=== PATIENT | male | born 1945 | race Caucasian/White ===

== ENCOUNTER → 2020-05-14 | Outpatient (CLI) | payer MEDICARE ==
[2020-05-14 19:08] LABS: Protein, Total 5.9 g/dL (6.2-8.2)
[2020-05-15 17:36] LABS: Albumin 3.64 g/dL (3.80-4.90); Gamma Globulin 0.34 g/dL (0.70-1.50)
== END | disposition home or self-care (01) ==
LOC: LABWHC1 10:29
PROVIDERS: ATTEND Psychiatry & Neurology Neurology
DX: G62.9 Polyneuropathy, unspecified (principal)
CPT/HCPCS: 36415; 82607; 84165; 84207; 86334

== ENCOUNTER → 2020-10-18 | Outpatient (CLI) | payer MEDICARE ==
--- NOTE | 2020-10-20 09:04 | MR ---
EXAMINATION TYPE: MR Prostate wo/w con DATE OF EXAM: 10/18/2020 COMPARISON: None. INDICATION: Malignant neoplasm of prostate PSA: 6.1 ng/ml on March 25, 2020 Recent Biopsy and Date: September 02, 2020 Pathology Report (If Applicable): Right lateral base adenocarcinoma Rosie grade 3+4 = 7, 25% of tis rio measuring 2 mm length. Right base adenocarcinoma Rosie grade 3+4 = 7 approximately 10% of tissu e measuring 1 mm length, focal perineural invasion. Right lateral mid core biopsy adenocarcinoma Glea son grade 3+4 = 7 30% of tissue measure 2.5 mm length. Right mid core biopsy adenocarcinoma grade 3+4 = 7 5% of tissue measure less than 1 mm in length. Right lateral apex adenocarcinoma grade 3+4 = 7 5 % of tissue measures less than 1 mm length. Right apex high grade neoplasia. TECHNIQUE: Examination was performed using a 3T MRI without an endorectal coil. Multiparametric imaging was perf ormed with T2 mutliplanar sequences, axial diffusion weighted imaging and dynamic contrast enhanced i maging, utilizing 7.5 mL intravenous Gadavist gadolinium contrast. FINDINGS: PROSTATE VOLUME: 5.0 cm SI x 3.8 cm AP x 4.9 cm LR Vol= 48.7 cc PSA DENSITY: 0.125 ng/ml/cc Calculated PSA equals 5.844 T1 weighted images show vague areas of hyperintensity bilaterally consistent with blood product, find ings are greatest in the anterior aspect of the left central apex making evaluation suboptimal. Prost ate gland overall is enlarged in size and markedly heterogeneous in appearance. The peripheral zone s hows marked heterogeneity and areas of diminished signal on ADC mapping. No areas of marked diminishe d signal or increased signal on diffusion-weighted imaging identified. The central transitional zone shows marked heterogeneity with slightly suspicious asymmetric area of diminished T2 signal in the la teral apex measuring 1.4 x 0.9 cm image 17 series 401 without restricted diffusion. Prostatic capsule is poorly defined. Seminal vesicles symmetric and somewhat atrophic. No definitive abnormal adjacent adenopathy identified. Bladder not greatly distended with mild to moderate wall thi ckening and trabeculation greatest anteriorly. There is artifact from metallic hardware right hip lev el noted. No concerning pelvic fluid collection. No suspicious groin hernia or adenopathy identified. IMPRESSION: Markedly heterogeneous enlarged prostate. Poor definition of capsule without definitive suspicious le sonia Highest Assessment Category: 3 for the transitional and peripheral zone MRI Stage: T2 N0 M0 based on review of pelvic images. False negative rates for MRI range from 5-20% depending on risk profile. Assessment Categories: 1 ? Very low (clinically significant cancer is highly unlikely to be present) 2 ? Low (clinically significant cancer is unlikely to be present) 3 ? Intermediate (the presence of clinically significant cancer is equivocal) 4 ? High (clinically significant cancer is likely to be present) 5 ? Very high (clinically significant cancer is highly likely to be present)
== END | disposition home or self-care (01) ==
LOC: RADMRIMAIN 09:03
PROVIDERS: ATTEND Radiology Radiation Oncology
DX: N40.0 Benign prostatic hyperplasia without lower urinary tract symptoms (principal); C61 Malignant neoplasm of prostate
CPT/HCPCS: 72197; A9585

== ENCOUNTER → 2020-10-19 | Outpatient (CLI) | payer MEDICARE | END | disposition home or self-care (01) | LOC: LABWHC1 12:52 | PROVIDERS: ATTEND Radiology Radiation Oncology | DX: C61 Malignant neoplasm of prostate (principal) | CPT/HCPCS: 36415; 84153 ==

== ENCOUNTER 2020-11-12 07:39 | Day surgery (SDC) | payer MEDICARE ==
[2020-11-11 09:08] VITALS: BMI 24.8
--- NOTE | 2020-11-11 21:15 | P.GSHP ---
History of Present Illness H&P Date: 11/05/20 Chief Complaint: Prostate cancer The patient is a 75-year-old white male with a rising PSA level, most recently 7.1. JANICE reveals the prostate to be a nodular. He underwent a prostate ultrasound with biopsies 09/02/2020. The prostate volume was 30 mL. 5 of 6 right-sided biopsies showed [place] 7 (3+4) adenocarcinoma. All 6 left-sided biopsies were negative. The patient has elected to be treated with radiation therapy. He declines androgen deprivation therapy. He now comes for SpaceOAR implant and also implantation of gold fiducial markers. - Constitutional Constitutional: Denies chills, Denies fever - Genitourinary (Male) Genitourinary: Reports urinary frequency Past Medical History Past Medical History: Hyperlipidemia, Sleep Apnea/CPAP/BIPAP Additional Past Medical History / Comment(s): HAS [id number] DISEASE History of Any Multi-Drug Resistant Organisms: None Reported Past Surgical History: Adenoidectomy, Appendectomy, Joint Replacement, Orthopedic Surgery, Tonsillectomy Additional Past Surgical History / Comment(s): RT NAHUM. RT KNEE SCOPE. BILAT ROTATOR CUFF SX. BILAT HAND SX. LT CATARACT SX. COLONOSCOPY. HEMORRHOIDECTOMY Past Anesthesia/Blood Transfusion Reactions: No Reported Reaction Past Alcohol Use History: Occasional Past Drug Use History: None Reported - Past Family History Mother Family Medical History: Cancer Sister(s) Family Medical History: Cancer Additional Family Medical History / Comment(s): skin Father Family Medical History: Cancer Additional Family Medical History / Comment(s): skin Medications and Allergies Home Medications Medication Instructions Recorded Confirmed Type Aspirin 81 mg PO DAILY 04/24/15 11/11/20 History Multivitamin [Men's Multi-Vitamin] 1 each PO DAILY 04/24/15 11/11/20 History Ascorbic Acid [Vitamin C] 1,000 mg PO DAILY 11/11/20 11/11/20 History Ergocalciferol [Vitamin D2 (1250 1,250 mcg PO MO 11/11/20 11/11/20 History Mcg = 44925 Iu)] Latanoprost/Pf [Latanoprost 0.005% 1 drop BOTH EYES HS 11/11/20 11/11/20 History Eye Drop] Pravastatin Sodium [Pravachol] 20 mg PO W/SUPPER 11/11/20 11/11/20 History Querctin 1 tab PO DAILY 11/11/20 11/11/20 History Sun Flower 1 tab PO DAILY 11/11/20 11/11/20 History Zinc 25 mg PO DAILY 11/11/20 11/11/20 History Allergies Allergy/AdvReac Type Severity Reaction Status Date / Time No Known Allergies Allergy Verified 11/11/20 08:56 Surgical - Exam - General well developed, well nourished, no distress - Respiratory normal respiratory effort - Abdomen Abdomen: soft, non tender, no guarding, no rigid, no rebound - Psychiatric oriented to time, oriented to person, oriented to place, speech is normal, memory intact Assessment and Plan (1) Malignant neoplasm of prostate Status: Acute Code(s): C61 - MALIGNANT NEOPLASM OF PROSTATE SNOMED Code(s): 415482084 Plan: The SpaceOar implant has been reviewed in detail with the patient. He understands that the rationale for this is to create separation between the prostate and rectum, thus reducing the risk of radiation proctitis. The material begins to breakdown 12-13 weeks following implant, and is reabsorbed by the body. Risks include anesthesia, bleeding, infection, and perineal discomfort. He understands that if the rectal wall is perforated the procedure will need to be aborted. He is also aware of the rationale for implantation undergo fiducial markers, at the request of Radiation Oncology.
[~2020-11-12 07:39] MED LIST: DEXAMETHASONE SOD PHOSPHATE 4 MG/ML 1 ML VIAL IV ONE; HYDROmorphone 0.5 MG/0.5 ML SYRINGE IVP PRN; LACTATED RINGERS 1,000 ML IV SCH; ONDANSETRON 4 MG/2 ML VIAL IVP ONE
[2020-11-12 08:20] VITALS: RESP 18; TEMP 98
[2020-11-12] MEDS ORDERED: fentaNYL (PF) 50 MCG/ML 2 ML AMP ONE (11:12)
[2020-11-12] MEDS ORDERED: PROPOFOL 10 MG/ML 20 ML VIAL IV ONE (11:12)
[2020-11-12] MEDS ORDERED: MIDAZOLAM 2 MG/2 ML VIAL ONE (11:12)
[2020-11-12] MEDS ORDERED: LIDOCAINE 2% INJ 20 MG/ML SQ ONE ×2 (11:35)
[2020-11-12] MEDS ORDERED: LACTATED RINGERS 1,000 ML IV ONE (11:58)
--- NOTE | 2020-11-12 12:08 | P.OP ---
Date of Procedure: 11/12/20 Preoperative Diagnosis: Adenocarcinoma of the Prostate Postoperative Diagnosis: Same Procedure(s) Performed: Implantation of gold fiducial markers, SpaceOAR mplant Anesthesia: MAC Surgeon: Fortunato Fofana Estimated Blood Loss (ml): 10 IV fluids (ml): 600 Pathology: none sent Condition: stable Disposition: PACU Indications for Procedure: The patient is a 75-year-old white male with a rising PSA level, most recently 7.1. JANICE reveals the prostate to be a nodular. He underwent a prostate ultrasound with biopsies 09/02/2020. The prostate volume was 30 mL. 5 of 6 right-sided biopsies showed [place] 7 (3+4) adenocarcinoma. All 6 left-sided biopsies were negative. The patient has elected to be treated with radiation therapy. He declines androgen deprivation therapy. He now comes for SpaceOAR implant and also implantation of gold fiducial markers. Operative Findings: No complications. Approximately 9 mm distance created between prostate and rectum. Description of Procedure: The patient was taken to the operating room and placed in the dorsolithotomy position, with his legs supported in Jose stirrups. The external genitalia was prepped and draped sterilely. The Bruel and Kjaer transrectal ultrasound probe was placed intrarectally. The prostate was imaged. The probe was then placed within the stabilizing stand. A spinal needle was advanced under ultrasonic guidance to the level of the urogenital diaphragm, and lidocaine was used to infiltrate the tissues as the needle was withdrawn. 3 gold fiducial markers were placed under ultrasonic guidance, one laterally on the right at the mid gland level and the other within the left lateral lobe, one at the base and the other at the apex. Next, the SpaceOAR needle was passed through the midline of the perineum, 1-2 cm anterior to the anal opening. The needle was slowly advanced under ultrasonic guidance until the needle tip was located within the fat plane between the prostate and rectum, at the level of the mid prostate gland. The needle was confirmed to be midline on the axial imaging. A small amount of normal saline was injected for hydrodissection. Next, the SpaceOAR components were mixed and loaded into the Y connector per protocol. The Y connector was then connected to the needle, and the components were injected slowly over a course of approximately 12 seconds. A total of 10 ml was injected. Significant distance was created between the prostate and rectum, as desired. It should be noted that at no point was there any concern of rectal perforation. The needle was withdrawn, as well as the transrectal ultrasound probe, and the procedure was terminated. The patient tolerated the procedure well and was taken to the recovery room in stable condition.
[2020-11-12 12:28] VITALS: BP 122/79; PULSE 80
== END 2020-11-12 12:35 | disposition home or self-care (01) ==
LOC: OR 07:39
PROVIDERS: ATTEND Urology
DX: C61 Malignant neoplasm of prostate (principal); E78.5 Hyperlipidemia, unspecified; G47.30 Sleep apnea, unspecified; Z99.89 Dependence on other enabling machines and devices; G60.0 Hereditary motor and sensory neuropathy; Z98.890 Other specified postprocedural states; Z96.641 Presence of right artificial hip joint; Z90.89 Acquired absence of other organs; Z98.42 Cataract extraction status, left eye; Z80.8 Family history of malignant neoplasm of other organs or systems; Z79.82 Long term (current) use of aspirin; Z79.899 Other long term (current) drug therapy
CPT/HCPCS: 55876; 55874; J2001; J2250; J1100; J0690; J2405; J3010; J2704

== ENCOUNTER → 2021-02-09 | Outpatient (CLI) | payer MEDICARE | END | disposition home or self-care (01) | LOC: LABWHC1 10:11 | PROVIDERS: ATTEND Radiology Radiation Oncology | DX: C61 Malignant neoplasm of prostate (principal); Z00.6 Encounter for examination for normal comparison and control in clinical research program | CPT/HCPCS: 36415; 84153 ==

== ENCOUNTER → 2021-02-17 | Outpatient (CLI) | payer MEDICARE ==
[2021-02-17 14:51] LABS: Protein, Total 6.2 g/dL (6.2-8.2)
[2021-02-17 18:34] LABS: Hemoglobin A1C 5.7 % (4.0-6.0)
[2021-02-19 12:24] LABS: Albumin 3.59 g/dL (3.80-4.90); Gamma Globulin 0.45 g/dL (0.70-1.50)
== END | disposition home or self-care (01) ==
LOC: LABWHC1 09:50
PROVIDERS: ATTEND Psychiatry & Neurology Neurology
DX: Z09 Encounter for follow-up examination after completed treatment for conditions other than malignant neoplasm (principal); R73.9 Hyperglycemia, unspecified; G62.9 Polyneuropathy, unspecified
CPT/HCPCS: 36415; 83036; 84165; 86334

== ENCOUNTER → 2021-03-05 | Outpatient (CLI) | payer MEDICARE ==
--- NOTE | 2021-03-05 13:43 | MR ---
EXAMINATION TYPE: MR lumbar spine wo con DATE OF EXAM: 03/05/2021 COMPARISON: None HISTORY: M48.06, I 70.213, R 26.89 . TECHNIQUE: Multiplanar, multisequence images of the lumbar spine were acquired. L1-L2: Posterior circumferential extension endplate disc complex causes anterior mass effect on the t hecal sac. Circumferential extension endplate disc complex results in foraminal encroachment bilatera lly. L2-L3: There is hypertrophic changes of the facets causing posterior lateral mass effect on the theca l sac, encroachment on the lateral recesses, there is crowding of the nerve roots, trefoil appearance of the thecal sac. Circumferential extension of endplate disc complex results in foraminal encroachm ent greater on the right than on the left. There is posterior extension endplate disc complex causing anterior mass effect on the thecal sac. Small central posterior disc protrusion noted. L3-L4: Hypertrophic changes of the facets, ligamentum flavum causes posterior lateral mass effect on the thecal sac, there is a trefoil appearance of the thecal sac. Circumferential extension endplate d isc complex results in foraminal encroachment, posterior extension endplate disc complex causes anter ior mass effect on the thecal sac with some mild to moderate central stenosis. L4-L5: Hypertrophic changes of the facets causes posterior lateral mass effect on the thecal sac, angelique foil appearance of the thecal sac, encroachment on the lateral recess noted on the left due to the hy pertrophic changes. There is minimal anterolisthesis grade 1 L4-5. Circumferential extension of endpl ate disc complex causes some left-sided foraminal encroachment. L5-S1: There is some facet arthropathy change. No significant spinal stenosis or foraminal encroachme nt. No disc herniation. Lumbar segments are intact. No paraspinal masses are identified. Conus medullaris has a normal appe arance. There is a scoliotic curvature to the lumbar spine. Lumbar vertebral bodies show preserved he ight. There is multilevel spondylosis with endplate discogenic marrow signal changes, loss of disc he ight and signal is present at intervertebral levels. Multiple cysts are associated with the kidneys. IMPRESSION: Degenerative disc disease, facet arthropathy, foraminal encroachment, spinal stenosis, spinal curvatu re.
== END | disposition home or self-care (01) ==
LOC: RADMRIMAIN 12:30
PROVIDERS: ATTEND Psychiatry & Neurology Neurology
DX: M48.061 Spinal stenosis, lumbar region without neurogenic claudication (principal); M51.36 Other intervertebral disc degeneration, lumbar region; M47.816 Spondylosis without myelopathy or radiculopathy, lumbar region; M99.73 Connective tissue and disc stenosis of intervertebral foramina of lumbar region; M43.8X6 Other specified deforming dorsopathies, lumbar region
CPT/HCPCS: 72148

== ENCOUNTER → 2021-05-31 | Outpatient (CLI) | payer MEDICARE | END | disposition home or self-care (01) | LOC: LABWHC1 09:05 | PROVIDERS: ATTEND Radiology Radiation Oncology | DX: Z00.6 Encounter for examination for normal comparison and control in clinical research program (principal); C61 Malignant neoplasm of prostate | CPT/HCPCS: 36415; 84153 ==

== ENCOUNTER → 2022-05-30 | Outpatient (CLI) | payer MEDICARE | END | disposition home or self-care (01) | LOC: LABWHC1 09:15 | PROVIDERS: ATTEND Radiology Radiation Oncology | DX: Z00.6 Encounter for examination for normal comparison and control in clinical research program (principal); C61 Malignant neoplasm of prostate; R35.1 Nocturia; Z92.3 Personal history of irradiation | CPT/HCPCS: 36415; 84153 ==

== ENCOUNTER → 2022-06-07 | Outpatient (CLI) | payer MEDICARE ==
[2022-06-07 10:59] LABS: INR 0.9 (<1.2); Prothrombin Time 9.9 sec (9.0-12.0)
[2022-06-07 14:38] LABS: HCT 45.5 % (39.6-50.0); HGB 14.7 g/dL (13.0-17.0); MCH 29.9 pg (27.0-32.0); MCHC 32.3 g/dL (32.0-37.0); MCV 92.5 fL (80.0-97.0); Mean Platelet Volume 9.8 fL (9.5-12.2); NRBC Per 100 WBC 0 /100 WBCS (0.0-0.0); Platelet Count 231 X 10*3/uL (140-440); RBC 4.92 X 10*6/uL (4.40-5.60); RDW 13.2 % (11.5-14.5)
[2022-06-07 14:54] LABS: African American GFR (CKD) 91.2 (60.0-200.0); Albumin/Globulin Ratio 1.61 (1.60-3.17); Anion Gap 9.1 mmol/L (10.00-18.00); BUN/Creat Ratio 21.14 Ratio (12.00-20.00); Blood Urea Nitrogen 19.7 mg/dL (9.0-27.0); Calcium 9.5 mg/dL (8.7-10.3); Carbon Dioxide 25.1 mmol/L (20.0-27.5); Globulin 2.5 g/dL (1.6-3.3); Non-African American GFR(CKD) 78.7 (60.0-200.0); Potassium 4.4 mmol/L (3.5-5.5); Total Bilirubin 0.3 mg/dL (0.30-1.20); Total Protein 6.4 g/dL (6.2-8.2)
[2022-06-07 15:52] LABS: Appearance,Urine Clear (Clear); Bilirubin,Urine Negative (Negative); Blood,Urine Small (Negative); Color,Urine Yellow (Yellow); Ketones,Urine Negative (Negative); Nitrite,Urine Negative (Negative); Specific Gravity,Urine 1.022 (1.001-1.030); Urobilinogen,Urine 0.2 (0.2,1.0)
[2022-06-07 16:36] LABS: Bacteria,Urine None Seen /HPF (None Seen); Calcium Oxalate Crystals,Urine Present /LPF (None Seen)
== END | disposition home or self-care (01) ==
LOC: LABPAT 10:03
PROVIDERS: ATTEND Orthopaedic Surgery
DX: Z01.812 Encounter for preprocedural laboratory examination (principal); M16.12 Unilateral primary osteoarthritis, left hip
CPT/HCPCS: 80053; 81001; 85027; 85610; 85730; 87070; 93005

== ENCOUNTER 2022-06-17 08:20 | Day surgery (SDC) | payer MEDICARE ==
[2022-06-15 09:59] VITALS: BMI 24.7
[~2022-06-17 08:20] MED LIST changes: +ACETAMINOPHEN TAB 500 MG TAB PO PRN; +DEXAMETHASONE SOD PHOSPHATE 10 MG/ML 1 ML VIAL IV PRN; +DOCUSATE 100 MG CAP PO PRN; +FAMOTIDINE 20 MG/2 ML VIAL IVP PRN; +KETOROLAC 15 MG/ML 1 ML VIAL IVP PRN; -LACTATED RINGERS 1,000 ML IV SCH; +ONDANSETRON 4 MG/2 ML VIAL IVP PRN; +TRANEXAMIC ACID IN NACL,ISO-OS 1,000 MG in SALINE 1 100ML.BAG IVPB PRN; +oxyCODONE ER 10 MG TAB.ER.12H PO PRN
[2022-06-17] MEDS: LACTATED RINGERS 1,000 ML IV SCH (09:13)
[2022-06-17] MEDS ORDERED: MIDAZOLAM 2 MG/2 ML VIAL IVP ONE (09:52)
[2022-06-17] MEDS ORDERED: fentaNYL (PF) 50 MCG/ML 2 ML AMP IVP ONE (09:52)
[2022-06-17] MEDS ORDERED: PROPOFOL 10 MG/ML 20 ML VIAL IV ONE (10:02)
[2022-06-17] MEDS ORDERED: HYDROmorphone (PF) 1 MG/ML ONE (10:02)
[2022-06-17] MEDS ORDERED: SUCCINYLCHOLINE CHLORIDE 200 MG/10 ML VIAL IV ONE (10:02)
[2022-06-17] MEDS ORDERED: TRANEXAMIC ACID IN NACL,ISO-OS 1,000 MG/100 ML BAG ONE (10:02)
[2022-06-17] MEDS ORDERED: GLYCOPYRROLATE 0.2 MG/ML 2 ML VIAL ONE (10:02)
[2022-06-17] MEDS ORDERED: NEOSTIGMINE 1 MG/ML 10 ML VIAL ONE (10:02)
[2022-06-17] MEDS ORDERED: PHENYLEPHRINE-0.9% NACL SYG 1,000 MCG/10 ML SYRINGE ONE (10:02)
[2022-06-17] MEDS ORDERED: fentaNYL (PF) 50 MCG/ML 2 ML AMP ONE (10:02)
[2022-06-17] MEDS ORDERED: MIDAZOLAM 2 MG/2 ML VIAL ONE (10:02)
[2022-06-17] MEDS ORDERED: ROCURONIUM 10 MG/ML (5 ML VIAL) IV ONE (10:02)
[2022-06-17] MEDS ORDERED: LIDOCAINE 2% INJ 20 MG/ML (2 ML VIAL) ONE (10:02)
[2022-06-17] MEDS ORDERED: ROPIVACAINE 5 MG/ML 30 ML VIAL ONE (10:02)
[2022-06-17] MEDS ORDERED: TRANEXAMIC ACID IN NACL,ISO-OS 1,000 MG in SALINE 1 100ML.BAG IVPB PRN (10:05)
[2022-06-17] MEDS: ROPIVACAINE/EPI/CLONIDINE/KET 50 ML SYRINGE MISCELLANE PRN ×2 (10:42→12:12)
[2022-06-17] MEDS ORDERED: ceFAZolin 3,000 MG in SODIUM CHLORIDE 0.9% IRRIGATIO 3,000 ML IRRIGATION ONE (10:43)
--- NOTE | 2022-06-17 11:01 | P.ANPRN ---
Procedure Note - Anesthesia - Nerve Block Performed Left Erector Spinae Single Time Out Performed: Yes ([id number]) Date of Procedure: 06/17/22 Procedure Start Time: 09:52 Procedure Stop Time: :56 Location of Patient: PreOp Indication: Acute Post-Operative Pain, Requested by Surgeon Specifically requested for management of pain by DrMala: Brandon Jiménez Sedation Type: Sedate with meaningful contact maintained Preparation: Sterile Prep Position: Supine Catheter: None Needle Types: Pajunk Needle Gauge: 21 Ultrasound used to visualize needle placement: Yes Ultrasound used to observe medication spread: Yes Injectate: 0.5% Ropivacaine (see comment for volume) (30cc) Blood Aspirated: No Pain Paresthesia on Injection Noted: No Resistance on Injection: Normal Image Stored and Saved: Yes Events: Uneventful and Well Tolerated
[2022-06-17] MEDS ORDERED: LACTATED RINGERS 1,000 ML IV ONE (11:39)
[2022-06-17] MEDS ORDERED: NALOXONE 0.4 MG/ML 1 ML VIAL IV PRN (12:36)
[2022-06-17] MEDS ORDERED: hydrOXYzine pamoate 25 MG CAP PO PRN (12:36)
[2022-06-17] MEDS ORDERED: ONDANSETRON 4 MG/2 ML VIAL IVP PRN (12:36)
[2022-06-17] MEDS ORDERED: HYDROcodone/APAP 5-325MG 1 EACH TAB PO PRN (12:36)
[2022-06-17] MEDS ORDERED: HYDROmorphone 0.5 MG/0.5 ML SYRINGE IVP PRN ×3 (12:36)
--- NOTE | 2022-06-17 12:37 | P.OP ---
Date of Procedure: 06/17/22 Preoperative Diagnosis: 1. Severe left hip osteoarthritis 2. Vzorvyl-Czsam-Fqexz disease 3. COPD 4. History of prostate cancer Postoperative Diagnosis: Same Procedure(s) Performed: Left direct anterior total hip arthroplasty Implants: 1. Nezperce Trident II Acetabular Cup, Size #54 2. Aura InsigniaSize # 4 Femoral Stem, High Offset 3. Biolox delta femoral head, 36, -5 neck Anesthesia: GETA Surgeon: Brandon Jiménez Motor Expert #1: Gerry Kincaid Estimated Blood Loss (ml): 300 IV fluids (ml): 1,000 Pathology: other (Femoral head and reamings sent to pathology) Condition: stable Disposition: PACU Indications for Procedure: I had a long discussion with the patient in the office on the potential risks and complications of an elective total hip replacement through a direct anterior approach. Risks discussed include, but are certainly not limited to, risks from anesthesia, superficial infection requiring local wound care or antibiotics, deep kalpesh-prosthetic joint infection and the treatment required to eradicate infection, intraoperative fracture, postoperative periprosthetic fracture, damage to local blood vessels or nerves particularly the lateral femoral cutaneous nerve, delayed wound healing requiring local wound care or possibly surgical debridement, hip dislocation, leg length discrepancy, soft tissue irritation around the total hip implant such as iliopsoas tendinitis or trochanteric bursitis, wear and osteolysis from the implants, squeaking or audible noises, groin pain, thigh pain, heterotopic ossification, stiffness, aseptic loosening of the implants, dissatisfaction with surgical outcome, need for revision surgery, DVT, PE, swelling of the operative extremity, acute coronary event, stroke, failure to thrive, and possibly loss of life or limb. The patient understands that while these are the most common complications after an elective hip replacement there are certainly other less common complications possible. They were given ample time to ask questions regarding the potential complications of a hip replacement. Following our discussion the patient provided their verbal and written consent to go forward with an elective total hip replacement. Operative Findings: The patient had multiple contractures around his hip making surgical exposure difficult. His bone was found to be excellent so I elected to use cementless fixation on the femoral component rather than a cemented stem. Due to his history of prostate cancer reamings from the femur were sent for pathology. Description of Procedure: The patient was identified in the preoperative holding area and the correct hip was marked with my initials. I reviewed the procedure and consent with the patient. All of their questions were answered. The patient was then brought back into the operating room by anesthesia. While on the [facility] heart anesthesia was administered by the anesthesia team. Preoperative antibiotics and tranexamic acid were also given. After the patient was under anesthesia I examined their ankles to determine their preoperative leg length discrepancy. The skin over the anterior aspect of the hip was shaved to remove hair over the site of planned incision. Both feet and ankles were padded with webril and boots for the Sheridan were applied. The patient was then carefully transferred onto the Sheridan table. A perineal post was immediately placed. The arms were placed on arm holders and were well-padded. Both boots were secured to the spars on the Sheridan table. The patient was positioned so that the pelvis was centered over the post. Nonsterile drapes were applied. A timeout was performed identifying the correct patient, operative extremity, and procedure. At this point fluoroscopy was brought in to take preoperative images of the pelvis and operative hip. Using the standing AP pelvis from the office as a template, a comparable image was obtained with fluoroscopy. A metallic bar was used to create a bi-ischial line for use as a reference to leg length adjustments during the procedure. Global offset was also measured on both the operative and nonoperative leg. Fluoroscopy was then brought out and a pre-scrub using a chlorhexidine scrub brush was performed. The operative limb was then prepped and draped in the standard sterile fashion. An anterior longitudinal incision was made lateral and distal to the ASIS. The skin and subcutaneous tissues were incised sharply. The underlying tensor fascia was identified and incised in its midportion. The fascia was dissected free from the underlying muscle and the muscle belly was retracted. A blunt tipped cobra retractor was placed over the superior neck under the muscle fibers of the gluteus minimus. The deep enveloping fascia of the tensor was incised. The anterior leash of vessels were then identified and cauterized. The fascia between the rectus and the capsule was then incised and the pre-capsular fat was excised. A second Cobra was placed inferior to the neck. The interval between the rectus and iliocapsularis and the hip capsule was developed and a retractor was placed carefully over the anterior rim of the acetabulum. A T-shaped anterior capsulotomy was performed. The superior capsular leaflet was left in place in the inferior capsular flap was excised. The Cobra retractors were placed intracapsularly. We then made a femoral neck osteotomy according to preoperative and intraoperative templating and confirmed the level of the osteotomy using fluoroscopic imaging. The femoral head was removed, passed off to the back table, and sized. The superior capsular flap was excised. Retractors were placed circumferentially exposing the acetabulum. We then circumferentially debrided the acetabulum free of labrum and osteophytes. The pulvinar was removed to fully visualize the cotyloid fossa. We then sequentially reamed to achieve peripheral fit and excellent bleeding subchondral bone. The socket was thoroughly irrigated. The acetabular component was impacted into the appropriate position using fluoroscopy to guide version, inclination, and depth of insertion taking care to have a comparable image of th e AP pelvis to the standing image taken in the office. An excellent press-fit was achieved and final position was confirmed using fluoroscopy. The press fit was augmented with bony cancellus dome screws. The liner was then impacted into the socket. Attention was then turned to the femur. The remnant dorsal lateral capsule was excised. The short external rotators were visible and protected. A bone hook was used to confirm appropriate translation of the trochanter away from the acetabulum. The leg was then extended and adducted and the bone hook was used to elevate the femur for broaching. A box osteotome and blunt tipped canal sound was then utilized to gain access to the femoral canal. The patient was found to have excellent bone quality and initially I had difficulty getting even the smallest broach into the canal. I used flexible reamers and sequentially reamed until I could safely begin broaching. Due to his history of prostate cancer reamings were sent for pathology. Due to the patient's good bone quality I elected to use a cementless femoral stem. We then sequentially broached the femur in appropriate anteversion until excellent torsional stability was achieved. The neck cut was brought flush to the trial broach with a calcar planar. A trial neck and head were then placed onto the broach and the hip was atraumatically reduced under direct visualization. External rotation to 90 was performed to assess stability. Fluoroscopy was brought in. An AP and lateral fluoroscopic image of the proximal femur was obtained to assess position and fill of the trial broach. An AP of the pelvis was then obtained and matched to the preoperative image taken. A bi-ischial bar was then placed and measurements were taken to assess changes in length and offset. The hip was then carefully dislocated, the proximal femur was exposed, and the trial implants were removed. The wound and proximal femur was thoroughly irrigated using sterile saline and pulsatile lavage. The final femoral implant was dispensed and gently tapped into place generating an excellent press-fit. The trunnion was cleansed and the final head was tapped into place to engage the Fowler taper. The acetabulum was irrigated and visualized to be free of debris. The hip was carefully reduced. Stability was checked clinically with external rotation to 90 and there was no evidence of instability. Final fluoroscopic images were taken. The wound was then thoroughly irrigated and soaked with a dilute Betadine rinse for 3 minutes. 3 L of sterile saline was irrigated through the wound using pulsatile lavage. Local anesthetic cocktail was injected into the soft tissues around the surgical field. A deep drain was placed. The wound was then closed in layers. A sterile dressing was placed over the surgical incision and drain site. The drapes were taken down and the patient was carefully transferred off of the Sheridan table. Following removal of the boots the leg lengths felt acceptable. The patient was then taken to recovery room having tolerated the procedure well. Gerry Kincaid PA-C was required as a skilled assistant media planner for patient positioning, surgical exposure, retraction, placement of implants, and closure of the surgical wound. PLAN: The patient can weight-bear as tolerated on the operative extremity. 2 doses of postoperative antibiotics. DVT prophylaxis with aspirin 81 mg twice a day based on preoperative risk stratification. Physical therapy for gait training. Discontinue drain postoperative day #1 if output is less than 100 mL per shift.
--- NOTE | 2022-06-17 13:43 | XR ---
EXAMINATION TYPE: XR Hip Limited LT DATE OF EXAM: 06/17/2022 COMPARISON: NONE HISTORY: Postop TECHNIQUE: One view submitted. FINDINGS: There is postsurgical change in near anatomic alignment. There is soft tissue edema and emphysema. IMPRESSION: 1. Postoperative change. Appears in near-anatomic alignment.
--- NOTE | 2022-06-17 13:43 | FL ---
EXAMINATION TYPE: FL guidance operating room DATE OF EXAM: 06/17/2022 HISTORY: Fluoroscopy time 45 seconds of fluoroscopy provided. IMPRESSION: 1. Fluoroscopy time.
[2022-06-17] MEDS ORDERED: PRAVASTATIN SODIUM 20 MG TAB PO SCH (17:30)
[2022-06-17] MEDS ORDERED: LATANOPROST 0.005% OPHTH DROPS 2.5 ML BTL BOTH EYES SCH (18:30)
[2022-06-17] MEDS: HYDROcodone/APAP 5-325MG 1 EACH TAB PO PRN (18:39)
[2022-06-17] MEDS: ASPIRIN 81 MG PO SCH (20:52)
[2022-06-17] MEDS ORDERED: ARTIFICIAL TEARS-HYPROMELLOSE DROPS 15 ML BTL BOTH EYES SCH (21:00)
[2022-06-17] MEDS ORDERED: SENNOSIDES-DOCUSATE SODIUM 1 EACH TAB PO SCH (21:00)
[2022-06-18] MEDS: HYDROcodone/APAP 5-325MG 1 EACH TAB PO PRN ×2 (01:20→09:48)
[2022-06-18] MEDS: LACTATED RINGERS 1,000 ML IV SCH (05:06)
[2022-06-18 08:52] VITALS: BP 136/81; PULSE 124; RESP 20; TEMP 98.4
[2022-06-18] MEDS ORDERED: KETOTIFEN 0.025% OPHTH DROPS 5 ML BTL BOTH EYES SCH (09:00)
[2022-06-18] MEDS ORDERED: ASPIRIN 81 MG PO SCH (09:00)
[2022-06-18] MEDS ORDERED: MULTIVITAMINS, THERA 1 EACH TAB PO SCH (09:00)
--- NOTE | 2022-06-18 09:33 | P.CONS ---
History of Present Illness - Reason for Consult Consult date: 06/18/22 medical Management Requesting physician: Mariana Jiménez - Chief Complaint OA of the left hip - History of Present Illness This is a 77-year-old male patient who presented for an elective left hip arthroplasty with Dr. Jiménez on 06/17/2022. Patient has past medical history of prostate cancer in which she has received radiation, hyperlipidemia, osteoarthritis and sleep apnea. Patient reports he has a long-standing history of bilateral arthritis to hip with previous right hip arthroplasty. Conservative management has failed and patient elected for surgical procedure. Patient is currently postop day 1. Patient has been up ambulating. Patient reports urination without difficulty. Patient denies any chest pain or shortness breath. Patient denies nausea vomiting or diarrhea. Patient denies any urinary burning or frequency Review of Systems Referred to HPI otherwise unremarkable Past Medical History Past Medical History: Cancer, Hyperlipidemia, Osteoarthritis (OA), Prostate Disorder, Sleep Apnea/CPAP/BIPAP Additional Past Medical History / Comment(s): HAS BBXPERT-VBIKE-EPVNM DISEASE, has curled toes (wears braces on feet), prostate cancer-had radiation tx 10/2019- 11/2019 History of Any Multi-Drug Resistant Organisms: None Reported Past Surgical History: Adenoidectomy, Appendectomy, Joint Replacement, Orthopedic Surgery, Tonsillectomy Additional Past Surgical History / Comment(s): hemorrhoidectomy, justino shoulder rotator cuff, rt hip replacement, left cataract, justino hand tendon surgery, gum surgery, arthroscopy rt knee, rt hip revision, Past Anesthesia/Blood Transfusion Reactions: No Reported Reaction Past Psychological History: No Psychological Hx Reported Smoking Status: Never smoker Past Alcohol Use History: Occasional Past Drug Use History: None Reported - Past Family History Sister(s) Family Medical History: Cancer Additional Family Medical History / Comment(s): skin Father Family Medical History: Cancer Additional Family Medical History / Comment(s): skin Mother Family Medical History: Cancer Medications and Allergies Home Medications Medication Instructions Recorded Confirmed Type Aspirin 81 mg PO DAILY 04/24/15 06/17/22 History Multivitamin [Men's Multi-Vitamin] 1 each PO DAILY 04/24/15 06/17/22 History Latanoprost/Pf [Latanoprost 0.005% 1 drop BOTH EYES PC-SUPPER 11/11/20 06/17/22 History Eye Drop] Pravastatin Sodium [Pravachol] 20 mg PO W/SUPPER 11/11/20 06/17/22 History Carboxymethylcellulose Sodium 1 drop BOTH EYES HS 06/15/22 06/17/22 History [Refresh Tears] Ergocalciferol [Vitamin D2 (1250 1,250 mcg PO MO 06/15/22 06/17/22 History Mcg = 86145 Iu)] Olopatadine HCl [Pataday] 1 drop BOTH EYES QAM 06/15/22 06/17/22 History Aspirin 81 mg PO BID 30 Days #60 tab 06/18/22 Rx Diclofenac Sodium [Voltaren] 75 mg PO BID 30 Days #60 tab 06/18/22 Rx Docusate [Colace] 100 mg PO BID #60 capsule 06/18/22 Rx HYDROcodone/APAP 5-325MG [Riddle 1 tab PO Q6HR PRN 7 Days #30 tab 06/18/22 Rx 5-325] Omeprazole 40 mg PO DAILY 30 Days #30 cap 06/18/22 Rx Allergies Allergy/AdvReac Type Severity Reaction Status Date / Time No Known Allergies Allergy Verified 06/17/22 08:46 Physical Exam Vitals: Vital Signs Temp Pulse Pulse Resp BP BP Pulse Ox 06/18/22 08:00 98.4 F 124 H 20 136/81 97 06/18/22 01:43 98.3 F 89 14 120/70 95 06/17/22 20:00 97.6 F 85 89 18 110/74 96 06/17/22 18:00 87 114/75 97 06/17/22 16:00 93 132/75 98 06/17/22 15:30 92 131/83 96 06/17/22 15:15 66 125/74 99 06/17/22 15:00 87 129/83 98 06/17/22 14:45 60 119/72 95 06/17/22 14:30 59 L 122/71 100 06/17/22 14:02 85 16 115/61 99 06/17/22 13:49 61 16 116/58 94 L 06/17/22 13:34 87 16 124/58 99 06/17/22 13:19 58 L 16 118/68 98 06/17/22 13:04 64 16 130/64 98 06/17/22 12:47 67 16 122/67 97 09/16/22 12:36 97.4 F L 63 16 118/70 99 Intake and Output 06/17/22 06/18/22 06/18/22 22:59 06:59 14:59 Intake Total 540 Output Total 100 Balance 540 -100 Intake: Oral 540 Output: Urine 100 Other: Voiding Method Urinal # Voids 4 Weight 79.5 kg Head normocephalic Neck supple Lungs clear to auscultation bilaterally no wheezing or crackles Heart regular rate and rhythm S1-S2, no rub or gallop Abdomen is soft nontender nondistended positive bowel sounds no hepatosplenomegaly Extremities no edema. Left hip dressing clean dry and intact Neuro alert and orientated to 3 Assessment and Plan Assessment: 1. Left hip arthritis status post surgical repair on 06/17/[address] Jiménez 2. History of prostate cancer 3. History of hyperlipidemia 4. Previous history of right hip arthroplasty Thank you for this consultation we'll continue to follow patient closely throughout stay Anticipate possible discharge home today Laboratory currently pending Time with Patient: Greater than 30 (Greater than 60% of the total time spent in counseling and coordination of care)
[2022-06-18] MEDS: ASPIRIN 81 MG PO SCH (09:39)
--- NOTE | 2022-06-18 10:00 | P.DS ---
Providers Expected date of discharge: 06/18/22 Attending physician: Brandon Jimnéez Consults: 06/17/22 12:36 Consult Physician Routine Consulting Provider: Lucinda Hyman Consult Reason/Comments: medical management Do you want consulting provider notified?: Yes Primary care physician: Lucinda Boogie [place] [facility] Course: This is a 77-year-old male who was last seen in the office by Dr. Jiménez with complaints of continued left hip pain. The patient has a known history of degenerative arthritis of the left hip and presents to discuss surgical options. After discussion and consideration the patient elects to proceed with direct anterior left total hip arthroplasty. The patient is seen preoperatively by Dr. Hyman and cleared for surgery. The patient is admitted to [facility] for direct anterior left total hip arthroplasty. The procedures performed without complication or sequelae. Patient is doing well postoperatively. Vital signs are stable at discharge. Labs are stable at discharge. The patient is examined bedside this morning with Dr. Jiménez. He states the pain in her left hip is well-controlled at this time. He is ambulating with a walker with minimal assistance. He has passed physical therapy to return home today. He overall feels well. He denies chest pain, shortness of breath, nausea, vomiting, fevers, chills. On examination, the patient is lying in bed in no apparent distress. He is alert and oriented 3. On inspection of her left hip, there is surgical OpSite dressing in place with no bleeding or drainage through the dressing. Mild swell ing of the thigh, thigh soft and compressible. Motor and sensory function is intact of the left lower extremity. Femoral nerve function intact. Left lower extremity were well perfused. The calf is soft and nontender. The patient is discharged to home with home health care on postop day #1 pending medical clearance. Please see orders and refer to the med rec for accurate list of medications. Plan - Discharge Summary Discharge Rx Participant: Yes New Discharge Prescriptions: New HYDROcodone/APAP 5-325MG [Patterson 5-325] 1 tab PO Q6HR PRN 7 Days #30 tab PRN Reason: Pain Diclofenac Sodium [Voltaren] 75 mg PO BID 30 Days #60 tab Aspirin 81 mg PO BID 30 Days #60 tab Docusate [Colace] 100 mg PO BID #60 capsule Omeprazole 40 mg PO DAILY 30 Days #30 cap No Action Aspirin 81 mg PO DAILY Multivitamin [Men's Multi-Vitamin] 1 each PO DAILY Pravastatin Sodium [Pravachol] 20 mg PO W/SUPPER Latanoprost/Pf [Latanoprost 0.005% Eye Drop] 1 drop BOTH EYES PC-SUPPER Ergocalciferol [Vitamin D2 (1250 Mcg = 60185 Iu)] 1,250 mcg PO MO Carboxymethylcellulose Sodium [Refresh Tears] 1 drop BOTH EYES HS Olopatadine HCl [Pataday] 1 drop BOTH EYES QAM Discharge Medication List Aspirin 81 mg PO DAILY 04/24/15 [History] Multivitamin [Men's Multi-Vitamin] 1 each PO DAILY 04/24/15 [History] Latanoprost/Pf [Latanoprost 0.005% Eye Drop] 1 drop BOTH EYES PC-SUPPER 11/11/20 [History] Pravastatin Sodium [Pravachol] 20 mg PO W/SUPPER 11/11/20 [History] Carboxymethylcellulose Sodium [Refresh Tears] 1 drop BOTH EYES HS 06/15/22 [History] Ergocalciferol [Vitamin D2 (1250 Mcg = 03921 Iu)] 1,250 mcg PO MO 06/15/22 [History] Olopatadine HCl [Pataday] 1 drop BOTH EYES QAM 06/15/22 [History] Aspirin 81 mg PO BID 30 Days #60 tab 06/18/22 [Rx] Diclofenac Sodium [Voltaren] 75 mg PO BID 30 Days #60 tab 06/18/22 [Rx] Docusate [Colace] 100 mg PO BID #60 capsule 06/18/22 [Rx] HYDROcodone/APAP 5-325MG [Patterson 5-325] 1 tab PO Q6HR PRN 7 Days #30 tab 06/18/22 [Rx] Omeprazole 40 mg PO DAILY 30 Days #30 cap 06/18/22 [Rx] Follow up Appointment(s)/Referral(s): Brandon Jiménez MD [Medical Doctor] - 2 Weeks Activity/Diet/Wound Care/Special Instructions: Weight bear to tolerance on operative hip with a walker. Keep operative dressing intact until follow-up appointment in the office. Call the office if dressing becomes saturated or falls off. May shower over dressing. Take pain medications as needed. Take aspirin 81 mg twice a day 4 weeks for blood clot prevention. Follow-up in the office in [address] Jiménez. Call the office with any questions or concerns, Discharge Disposition: HOME WITH HOME HEALTH SERVICES
[2022-06-18 11:39] LABS: Basophils # (A) 0.03 X 10*3/uL (0.00-0.10); Basophils % (A) 0.2 %; Eosinophils # (A) 0.03 X 10*3/uL (0.04-0.35); Eosinophils % (A) 0.2 %; HCT 34.5 % (39.6-50.0); HGB 11.2 g/dL (13.0-17.0); Immature Grans, Automated 0.3 %; Lymphocytes # (A) 1.57 X 10*3/uL (0.90-5.00); MCH 29.9 pg (27.0-32.0); MCHC 32.5 g/dL (32.0-37.0); MCV 92.2 fL (80.0-97.0); Mean Platelet Volume 10.1 fL (9.5-12.2); Monocytes # (A) 1.19 X 10*3/uL (0.20-1.00); Monocytes % (A) 8.3 %; NRBC Per 100 WBC 0 /100 WBCS (0.0-0.0); Neutrophils # (A) 11.42 X 10*3/uL (1.80-7.70); Platelet Count 213 X 10*3/uL (140-440); RBC 3.74 X 10*6/uL (4.40-5.60); RDW 13.2 % (11.5-14.5); WBC 14.29 X 10*3/uL (4.50-10.00)
[2022-06-18 11:50] LABS: African American GFR (CKD) 84.8 (60.0-200.0); Albumin 3.4 g/dL (3.8-4.9); Albumin/Globulin Ratio 1.98 (1.60-3.17); Anion Gap 9.6 mmol/L (10.00-18.00); BUN/Creat Ratio 20.71 Ratio (12.00-20.00); Blood Urea Nitrogen 20.5 mg/dL (9.0-27.0); Calcium 8.6 mg/dL (8.7-10.3); Carbon Dioxide 24.6 mmol/L (20.0-27.5); Globulin 1.7 g/dL (1.6-3.3); Non-African American GFR(CKD) 73.2 (60.0-200.0); Potassium 4.7 mmol/L (3.5-5.5); Total Bilirubin 0.4 mg/dL (0.30-1.20); Total Protein 5.1 g/dL (6.2-8.2)
[2022-06-20] MEDS ORDERED: ERGOCALCIFEROL 1,250 MCG (50,000 IU) CAPSULE PO SCH (09:00)
== END 2022-06-18 12:37 | disposition home health service (06) ==
LOC: OR 08:20 → 4SSUR 13:55 → OR 06-18 12:37
PROVIDERS: ATTEND Orthopaedic Surgery
DX: M16.12 Unilateral primary osteoarthritis, left hip (principal); G89.18 Other acute postprocedural pain; J44.9 Chronic obstructive pulmonary disease, unspecified; E78.5 Hyperlipidemia, unspecified; H91.90 Unspecified hearing loss, unspecified ear; Z85.46 Personal history of malignant neoplasm of prostate; G60.0 Hereditary motor and sensory neuropathy; H53.8 Other visual disturbances; Z79.82 Long term (current) use of aspirin; Z79.890 Hormone replacement therapy; Z79.899 Other long term (current) drug therapy
CPT/HCPCS: 97161; 64999; 86900; 86901; 88304; 88305; 80053; 85025; 86850; 88311; 73501; 27130; C1776; J2250; J0330; J1100; J2710; J0690 ×3; J2405; J3010; J1170; J2795; J1885; J2370; J2704; J2001

== ENCOUNTER → 2022-06-22 | Outpatient (CLI) | payer MEDICARE ==
--- NOTE | 2022-06-22 10:49 | US ---
EXAMINATION TYPE: US venous doppler duplex LE LT DATE OF EXAM: 06/22/2022 10:40 AM COMPARISON: NONE CLINICAL HISTORY: [id number] PAIN IN LEFT HIP. Recent left hip replacement, left knee swelling SIDE PERFORMED: Left TECHNIQUE: The lower extremity deep venous system is examined utilizing real time linear array sonog neelam with graded compression, doppler sonography and color-flow sonography. VESSELS IMAGED: Common Femoral Vein Deep Femoral Vein Greater Saphenous Vein * Femoral Vein Popliteal Vein Small Saphenous Vein * Proximal Calf Veins (* superficial vessels) Left Leg: Appears negative for DVT IMPRESSION: No evidence of DVT at this time.
== END | disposition home or self-care (01) ==
LOC: RADUSWWP 10:03
PROVIDERS: ATTEND Orthopaedic Surgery
DX: I80.9 Phlebitis and thrombophlebitis of unspecified site (principal)

== ENCOUNTER → 2023-01-25 | Outpatient (CLI) | payer MEDICARE | END | disposition home or self-care (01) | LOC: LABWHC1 09:30 | PROVIDERS: ATTEND Radiology Radiation Oncology | DX: Z08 Encounter for follow-up examination after completed treatment for malignant neoplasm (principal); Z00.6 Encounter for examination for normal comparison and control in clinical research program; C61 Malignant neoplasm of prostate; Z85.46 Personal history of malignant neoplasm of prostate; R35.1 Nocturia; Z92.3 Personal history of irradiation | CPT/HCPCS: 36415; 84153 ==

== ENCOUNTER → 2024-02-16 | Outpatient (CLI) | payer MEDICARE ==
--- NOTE | 2024-02-16 13:47 | CT ---
EXAMINATION TYPE: CT left knee - [facility] Protocol DATE OF EXAM: 02/16/2024 COMPARISON: None HISTORY: pre-op left total knee CT DLP: [address] of the left lower extremity for preoperative planning. FINDINGS: Bilateral hip prostheses are in place. Streak artifact limits evaluation. Evaluation about the left k nee demonstrates severe narrowing lateral tibiofemoral joint space with widening of the medial tibiof emoral joint space suggesting underlying instability. [id number] laterally. Subchondral sclerosis a nd marginal bony spurring. Patellofemoral joint space narrowing with chondromalacia patella. Small sultana prapatellar joint effusion. The ankles are intact bilaterally. IMPRESSION: 1. Preoperative planning CT of the left lower extremity
== END | disposition home or self-care (01) ==
LOC: RADCTMAIN 12:38
PROVIDERS: ATTEND Orthopaedic Surgery
DX: Z01.818 Encounter for other preprocedural examination (principal); M21.062 Valgus deformity, not elsewhere classified, left knee; M17.12 Unilateral primary osteoarthritis, left knee; M25.562 Pain in left knee; Z96.643 Presence of artificial hip joint, bilateral

== ENCOUNTER 2024-02-23 11:42 | Day surgery (SDC) | payer MEDICARE ==
[2024-02-23] MEDS: LACTATED RINGERS 1,000 ML IV ONE (13:44)
[2024-02-23] MEDS ORDERED: PROPOFOL 10 MG/ML 20 ML VIAL IV ONE (14:00)
[2024-02-23 14:01] VITALS: TEMP 97.8
--- NOTE | 2024-02-23 14:16 | P.PCN ---
Date of Procedure: 02/23/24 Procedure(s) Performed: BRIEF HISTORY: Patient is a 79-year-old, pleasant, white male scheduled for an upper endoscopy as a part evaluation of intermittent dysphagia to solids for the last 1 year duration.. PROCEDURE PERFORMED: Esophagogastroduodenoscopy with dilation. PREOPERATIVE DIAGNOSIS: Intermittent dysphagia to solid. IV sedation per anesthesia. PROCEDURE: After informed consent was obtained, the patient was brought into the endoscopy unit. IV sedation was administered by Anesthesia under continuous monitoring. Initially the Olympus GIF-140 video endoscope was inserted into the mouth. Esophagus intubated without any difficulty. It was gradually advanced into the stomach and duodenum and carefully examined. The bulb and the second part of the duodenum appeared normal. The scope at this time was withdrawn to the stomach, adequately insufflated with air, and upon careful examination, mucosa of the antrum, body, cardia and the fundus appeared normal. The scope was then withdrawn into the esophagus. Small hiatal hernia noted. The GE junction was located at 39 cm from the incisors. There was a distal esophageal stricture identified and this was dilated using 15 to 18 mm TTS balloon for 60 seconds. The rest of the esophagus appeared normal. There were no erosions or ulcerations seen. The proximal cervical esophagus was carefully examined and appeared normal and the patient tolerated the procedure well. IMPRESSION: 1. Distal esophageal stricture status post balloon dilation with 15 to 18 mm TTS balloon. 2. Small hiatal hernia. RECOMMENDATIONS: The findings of this examination were discussed with the patient as well as his family. He was advised to continue liquid diet for 2 hours. Then advance to soft diet. If he has persistent dysphagia was advised to follow-up in the office in 3 to 4 weeks.
[2024-02-23 14:58] VITALS: BP 133/78; PULSE 70; RESP 16
== END 2024-02-23 14:56 | disposition home or self-care (01) ==
LOC: ORWHC2ENDO 11:42
PROVIDERS: ATTEND Internal Medicine Gastroenterology
DX: K22.2 Esophageal obstruction (principal); K44.9 Diaphragmatic hernia without obstruction or gangrene; E78.5 Hyperlipidemia, unspecified; G47.33 Obstructive sleep apnea (adult) (pediatric); Z98.890 Other specified postprocedural states; Z79.82 Long term (current) use of aspirin; Z90.49 Acquired absence of other specified parts of digestive tract; Z79.899 Other long term (current) drug therapy
CPT/HCPCS: 43249; J2704; C1726; 43244

== ENCOUNTER → 2024-03-25 | Outpatient (CLI) | payer MEDICARE ==
[2024-03-25 13:25] LABS: INR 0.9 (<1.2); Partial Thromboplastin Time 24.5 sec (22.0-30.0)
[2024-03-25 19:18] LABS: HCT 46.7 % (39.6-50.0); HGB 15.4 g/dL (13.0-17.0); MCH 30.3 pg (27.0-32.0); MCV 91.7 FL (80.0-97.0); Mean Platelet Volume 10.2 FL (9.5-12.2); NRBC Per 100 WBC 0 X 10*3/uL (0.00-0.01); Platelet Count 235 X 10*3/uL (140-440); RBC 5.09 X 10*6/uL (4.40-5.60); RDW 13.5 % (11.5-14.5); WBC 7.62 X 10*3/uL (4.50-10.00)
[2024-03-25 19:43] LABS: ALT 29 U/L (10-49); AST 19 U/L (14-35); Albumin 4.4 g/dL (3.8-4.9); Alkaline Phosphatase 83 U/L (41-126); BUN/Creat Ratio 26.38 Ratio (12.00-20.00); Blood Urea Nitrogen 21.1 mg/dL (9.0-27.0); Calcium 9.5 mg/dL (8.7-10.3); Carbon Dioxide 25.4 mmol/L (21.6-31.8); Chloride 106 mmol/L (96-109); Glucose 72 mg/dL (70-110); Potassium 4.9 mmol/L (3.5-5.5); Sodium 144 mmol/L (135-145); Total Bilirubin 0.4 mg/dL (0.3-1.2); Total Protein 6.4 g/dL (6.2-8.2)
== END | disposition home or self-care (01) ==
LOC: LABWHC1 12:09
PROVIDERS: ATTEND Orthopaedic Surgery
DX: Z01.818 Encounter for other preprocedural examination (principal); Z22.322 Carrier or suspected carrier of Methicillin resistant Staphylococcus aureus
CPT/HCPCS: 36415; 80053; 85027; 85610; 85730; 87070

== ENCOUNTER 2024-04-03 14:27 | Day surgery (SDC) | payer MEDICARE ==
[~2024-04-03 14:27] MED LIST changes: -ACETAMINOPHEN TAB 500 MG TAB PO PRN; -DEXAMETHASONE SOD PHOSPHATE 10 MG/ML 1 ML VIAL IV PRN; -DEXAMETHASONE SOD PHOSPHATE 4 MG/ML 1 ML VIAL IV ONE; -DOCUSATE 100 MG CAP PO PRN; -FAMOTIDINE 20 MG/2 ML VIAL IVP PRN; -KETOROLAC 15 MG/ML 1 ML VIAL IVP PRN; -ONDANSETRON 4 MG/2 ML VIAL IVP ONE; -ONDANSETRON 4 MG/2 ML VIAL IVP PRN; +TRANEXAMIC 1,000 MG/100ML-NACL 1,000 MG in SALINE 1 100ML.BAG IV PRN; +TRANEXAMIC 1,000 MG/100ML-NACL 1,000 MG in SALINE 1 100ML.BAG IVPB PRN; -TRANEXAMIC ACID IN NACL,ISO-OS 1,000 MG in SALINE 1 100ML.BAG IVPB PRN; -oxyCODONE ER 10 MG TAB.ER.12H PO PRN
[2024-04-03] MEDS: LACTATED RINGERS 1,000 ML IV SCH (15:12)
[2024-04-03] MEDS: ACETAMINOPHEN TAB 500 MG TAB PO PRN (15:20)
[2024-04-03] MEDS: DEXAMETHASONE SOD PHOSPHATE 10 MG/ML 1 ML VIAL IV PRN (15:20)
[2024-04-03] MEDS: DOCUSATE 100 MG CAP PO PRN (15:20)
[2024-04-03] MEDS: oxyCODONE ER 10 MG TAB.ER.12H PO PRN (15:20)
[2024-04-03] MEDS: IV FLUID CONTINUATION 1,000 ML IV ONE (15:20)
[2024-04-03] MEDS: ONDANSETRON 4 MG/2 ML VIAL IVP PRN (15:21)
[2024-04-03] MEDS: KETOROLAC 15 MG/ML 1 ML VIAL IVP PRN (15:21)
[2024-04-03] MEDS: FAMOTIDINE 20 MG/2 ML VIAL IVP PRN (15:21)
[2024-04-03] MEDS: MIDAZOLAM 2 MG/2 ML VIAL IV ONE (16:23)
[2024-04-03] MEDS ORDERED: LIDOCAINE 1% INJ 10MG/ML (20 ML MDV) ONE (16:42)
[2024-04-03] MEDS ORDERED: ROCURONIUM 10 MG/ML (5 ML VIAL) IV ONE (16:42)
[2024-04-03] MEDS ORDERED: TRANEXAMIC 1,000 MG/100ML-NACL PREMIX BAG ONE (16:42)
[2024-04-03] MEDS ORDERED: PROPOFOL 10 MG/ML 20 ML VIAL IV ONE (16:42)
[2024-04-03] MEDS ORDERED: ROPIVACAINE 5 MG/ML 30 ML VIAL ONE (16:42)
[2024-04-03] MEDS ORDERED: NEOSTIGMINE 1 MG/ML 10 ML VIAL ONE (16:42)
[2024-04-03] MEDS ORDERED: GLYCOPYRROLATE 0.2 MG/ML 2 ML VIAL ONE (16:42)
[2024-04-03] MEDS ORDERED: fentaNYL (PF) 50 MCG/ML 2 ML AMP ONE (16:42)
[2024-04-03] MEDS ORDERED: HYDROmorphone (PF) 1 MG/ML ONE (16:42)
[2024-04-03] MEDS ORDERED: PHENYLEPHRINE 10 MG/ML VIAL ONE (16:42)
[2024-04-03] MEDS ORDERED: DEXAMETHASONE SOD PHOSPHATE 4 MG/ML 1 ML VIAL ONE (16:42)
[2024-04-03] MEDS: ROPIVACAINE/EPI/CLONIDINE/KET 50 ML SYRINGE MISCELLANE PRN (17:18)
[2024-04-03] MEDS: LACTATED RINGERS 1,000 ML IV ONE (17:45)
[2024-04-03] MEDS ORDERED: HYDROcodone/APAP 10-325MG 1 EACH TAB PO PRN (18:55)
[2024-04-03] MEDS ORDERED: ONDANSETRON 4 MG/2 ML VIAL IVP PRN (18:55)
[2024-04-03] MEDS ORDERED: hydrOXYzine pamoate 25 MG CAP PO PRN (18:55)
[2024-04-03] MEDS ORDERED: HYDROmorphone 0.5 MG/0.5 ML SYRINGE IVP PRN ×3 (18:55)
[2024-04-03] MEDS ORDERED: NALOXONE 0.4 MG/ML 1 ML VIAL IV PRN (18:55)
[2024-04-03] MEDS ORDERED: bisacodyL 10 MG SUPP RECTAL PRN (18:55)
[2024-04-03] MEDS ORDERED: NA PHOS,M-B/NA PHOS,DI-BA 133 ML ENEMA RECTAL PRN (18:55)
[2024-04-03] MEDS ORDERED: MAGNESIUM HYDROXIDE 2,400 MG/30 ML CUP PO PRN (18:55)
--- NOTE | 2024-04-03 19:33 | P.OP ---
Date of Procedure: 04/03/24 Preoperative Diagnosis: Severe left knee arthritis Postoperative Diagnosis: Same Procedure(s) Performed: 1. Left total knee arthroplasty 2. Computer assisted musculoskeletal navigation using CT/MRI images Implants: 1. Aura Triathlon CR Femur Size #5 2. Aura Triathlon [place] Tibial Base Size #5 3. Aura Triathlon CS poly Size #5, 9-mm 4. Aura Triathlon all poly patella, Size #32 Anesthesia: JOSE, regional Surgeon: Brandon Jiménez Flask Handler #1: Ok Marquez Estimated Blood Loss (ml): 100 IV fluids (ml): 800 Pathology: none sent Condition: stable Disposition: PACU Indications for Procedure: I met with the patient preoperatively in the office setting and discussed treatment of their symptomatic knee arthritis. They failed a long course of nonsurgical treatment and elected to proceed with an elective total knee replacement. I discussed the potential risks and complications at length and gave them ample time to ask questions. Risks discussed included: risks from anesthesia, superficial site surgical infection, acute and/or chronic periprosthetic joint infection, delayed wound healing, drainage, wound necrosis, instability, stiffness, stiffness requiring manipulation and/or revision surgery, damage to local blood vessels or nerves, aseptic loosening of the implants, extensor mechanism issues including disruption, patellar maltracking, avascular necrosis etc., continued or worsened knee pain, generalized dissatisfaction with surgical outcome, need for revision surgery, an inability to regain preinjury level of function, DVT, PE, other medical complications, and possibly loss of life or limb. The patient voiced their understanding that while these are the most common complications other less common complications are possible. They provided both their verbal and written consent to go forward with surgery. Description of Procedure: The patient was identified in preoperative holding and the correct operative extremity was verified and marked with a marker. I reviewed the consent form with the patient at length. All of their questions were answered. The patient was given a block by anesthesia. They were then brought back to the operating room. They were transferred onto the operating room table where a general anesthetic, preoperative antibiotics, and tranexamic acid were administered by anesthesia. A tourniquet was applied to the proximal aspect of the operative extremity. The contralateral extremity was padded under the heel and secured to the operating room table with a nonsterile blue towel and tape. The ipsilateral arm was carefully draped across the patient's chest and secured with a pillow and foam. A post was applied over the lateral aspect of the ipsilateral thigh and a bolster was placed under the ipsilateral foot. I verified that the operative extremity was stable and the knee was flexed to 90. The operative extremity was then placed in a leg jo, nonsterile drapes were applied, and t he extremity was prepped and draped sterilely in the standard sterile fashion. Prior to starting surgery timeout was performed identifying the correct patient, operative extremity, and procedure. The leg was then elevated, exsanguinated with an Esmarch bandage, and the tourniquet was inflated. An anterior midline incision was made sharply with a scalpel. Once I had dissected deep to the superficial fascial layer medial and lateral flaps were elevated. A medial parapatellar arthrotomy was created. Upon opening the knee joint there were diffuse arthritic changes in all 3 compartments. The anterior horn of the medial meniscus were sharply released and a medial release was performed around the posterior medial corner of the knee to facilitate retractor placement. The fat pad was excised with electrocautery. The patella was found to be severely arthritic and a provisional cut was made with a sagittal saw to facilitate mobilization of the extensor mechanism during the procedure. Re mnants of the ACL and PCL were then excised from the notch. 4 mm pins were then placed within the incision in the medial distal femur and proximal tibia. Arrays were applied to the pins and I verified they were completely tightened. The knee was then registered with the [employer] robot and manipulations in implant position were made to balance the knee and opitmize implant position. Using the Jac robotic saw all cuts were made in accordance with our plan. After all bony fragments had been removed the cuts were verified with the planar probe. The tibia was then subluxed forward and sized. The knee was brought into flexion and a lamina chemist biological was placed to allow removal of the meniscal remnants both medially and laterally as well as posterior osteophytes. Local anesthetic was then infiltrated around the joint capsule. Trial implants were then placed within the knee. Range of motion and collateral ligament tension was then evaluated. Adjustments in implant size and position were then made accordingly. Once the knee was felt to be appropriately balanced the Jac pins were removed. The patella was then recut, sized, and punched. A trial patellar button was then placed. With the trial components in place, the patella tracked midline. The femur was then drilled and the trial component removed. The trial tibial component was then appropriately rotated, pinned, and prepared for the keel. All trial components were then removed from the knee. The knee was thoroughly irrigated with pulsatile lavage. Cement was prepared via vacuum mixing in a bowl on the back table. I then hand pressurized cement into the femur and tibia and placed the implants beginning with the tibial base tray and poly liner, femoral component, and finally the patellar button. All extruded cement was removed including from the pin sites. Once the cement had hardened the knee was evaluated one final time with the final polyethylene liner in place. The knee had full extension and flexion and felt stable to varus and valgus stress throughout the arc of motion. The tourniquet was released and with the tourniquet down the patella tracked midline. All bleeders were controlled with electrocautery. The knee was then soaked for 3 minutes with a dilute Betadine soak. The knee was thoroughly irrigated using 3 L of sterile saline and pulsatile lavage. The extensor mechanism was then reapproximated using pop off Vicryl sutures followed by a running barbed suture. The knee was then closed in layers with a 0 strata fix for the deep fascial layer, 2-0 strata fix for the superficial subcutaneous layer and Monocryl and Steri-Strips for the skin. A sterile dressing was applied. I verified that all instrument, sponge, and sharp counts were correct. The patient was then transferred off the operating room table, extubated, and brought to recovery having tolerated the procedure well. Ok Marquez PA-C was required as a skilled trading assistant for patient positioning, draping, exposure, retraction, closure of wound and application of dressing PLAN: The patient can weight-bear as tolerated on the operative extremity. DVT prophylaxis with aspirin 81 mg twice a day based on preoperative risk stratification. Internal medicine for perioperative medical management. 2 doses of post-operative antibiotics. Physical therapy for gait training. Follow-up in the office in 2 weeks for wound check and x-rays of the knee including an AP and lateral.
--- NOTE | 2024-04-03 19:52 | XR ---
EXAMINATION TYPE: XR knee limited LT DATE OF EXAM: 04/03/2024 COMPARISON: NONE HISTORY: 79-year-old male evaluation for postoperative abnormality and alignment TECHNIQUE: 2 views FINDINGS: Images show placement of left total knee arthroplasty. Both distal femoral and proximal tib ial components of the prosthesis are well seated without periprosthetic fracture. Alignment grossly a natomic. Anterior soft tissue swelling with soft tissue air as well as intra-articular air related to recent operation. IMPRESSION: Uncomplicated postoperative appearance left total knee arthroplasty.
--- NOTE | 2024-04-03 19:53 | P.ANPRN ---
Procedure Note - Anesthesia - Nerve Block Performed Left Adductor Canal Single Time Out Performed: Yes Date of Procedure: 04/03/24 Procedure Start Time: 16: Procedure Stop Time: 16:25 Location of Patient: PreOp Indication: Acute Post-Operative Pain, Requested by Surgeon Sedation Type: Sedate with meaningful contact maintained Preparation: Sterile Prep Position: Supine Needle Types: Pajunk Needle Gauge: 21 Ultrasound used to visualize needle placement: Yes Ultrasound used to observe medication spread: Yes Blood Aspirated: No Pain Paresthesia on Injection Noted: No Resistance on Injection: Normal Image Stored and Saved: Yes Events: Uneventful and Well Tolerated (Ropivacaine 0.5% 20 cc plus dexamethasone 4 mg)
--- NOTE | 2024-04-03 19:55 | P.ANPRN ---
Procedure Note - Anesthesia - Nerve Block Performed Left iPack Single Time Out Performed: Yes Date of Procedure: 04/03/24 Procedure Start Time: 16: Procedure Stop Time: 16:28 Location of Patient: PreOp Indication: Acute Post-Operative Pain, Requested by Surgeon Sedation Type: Sedate with meaningful contact maintained Preparation: Sterile Prep Position: Supine Needle Types: Pajunk Needle Gauge: 21 Ultrasound used to visualize needle placement: Yes Ultrasound used to observe medication spread: Yes Blood Aspirated: No Pain Paresthesia on Injection Noted: No Resistance on Injection: Normal Image Stored and Saved: Yes Events: Uneventful and Well Tolerated (Ropivacaine 0.5% 20 cc plus dexamethasone 4 mg)
[2024-04-03] MEDS: SENNOSIDES-DOCUSATE SODIUM 1 EACH TAB PO SCH (22:43)
[2024-04-03] MEDS: ASPIRIN 81 MG PO SCH (22:43)
[2024-04-03] MEDS: SODIUM CHLORIDE 0.9% 1,000 ML IV SCH (22:43)
[2024-04-04] MEDS: HYDROcodone/APAP 5-325MG 1 EACH TAB PO PRN (07:55)
[2024-04-04 08:19] VITALS: BP 143/85; PULSE 85; RESP 17; TEMP 97.5
[2024-04-04 11:04] LABS: Basophils # (A) 0.02 X 10*3/uL (0.00-0.10); Basophils % (A) 0.1 %; Eosinophils # (A) 0 X 10*3/uL (0.04-0.35); Eosinophils % (A) 0 %; HCT 40.5 % (39.6-50.0); HGB 13.3 g/dL (13.0-17.0); Lymphocytes # (A) 0.99 X 10*3/uL (0.90-5.00); Lymphocytes % (A) 6.8 %; MCH 30.6 pg (27.0-32.0); MCHC 32.8 g/dL (32.0-37.0); MCV 93.3 FL (80.0-97.0); Mean Platelet Volume 10.4 FL (9.5-12.2); Monocytes # (A) 0.58 X 10*3/uL (0.20-1.00); NRBC Per 100 WBC 0 X 10*3/uL (0.00-0.01); Neutrophils # (A) 12.93 X 10*3/uL (1.80-7.70); Neutrophils % (A) 88.7 %; Platelet Count 215 X 10*3/uL (140-440); RBC 4.34 X 10*6/uL (4.40-5.60); RDW 13.6 % (11.5-14.5); WBC 14.58 X 10*3/uL (4.50-10.00)
--- NOTE | 2024-04-04 11:16 | P.DS ---
Providers Date of admission: 04/03/2024 Attending physician: Brandon Jiménez Consults: 04/03/24 18:55 Consult Physician Routine Consulting Provider: Lucinda Hyman Consult Reason/Comments: post op TKA medical management Do you want consulting provider notified?: Yes Primary care physician: Lucinda Hyman [facility] Course: The patient is a very pleasant 79-year-old male who is admitted under my care yesterday and underwent an uncomplicated left total knee replacement. Following surgery he was transferred to the orthopedic floor. He received 2 doses of postoperative antibiotics. He was started on aspirin 81 mg twice a day for DVT prophylaxis. On postoperative day #1 he was evaluated. The pain in his left knee was controlled. His surgical dressing was in place. His thigh and calf are soft and compressible. Motor and sensory function were intact in the left leg. He worked with physical therapy. Internal medicine was consulted for perioperative medical management. He initially had some difficulty with urination but was able to urinate freely. He was ultimately cleared for discharge home. Plan - Discharge Summary Discharge Rx Participant: Yes New Discharge Prescriptions: New Omeprazole 40 mg PO DAILY #30 cap Aspirin 81 mg PO BID #60 tab Docusate [Colace] 100 mg PO BID #60 capsule Diclofenac Sodium [Voltaren] 75 mg PO BID #60 tab HYDROcodone/APAP 5-325MG [Columbia 5-325] 1 - 2 tab PO Q6HR PRN #32 tab PRN Reason: Pain No Action Aspirin 81 mg PO Q48H Multivitamin [Men's Multi-Vitamin] 0.5 each PO DAILY Pravastatin Sodium [Pravachol] 20 mg PO W/SUPPER Latanoprost/Pf [Latanoprost 0.005% Eye Drop] 1 drop BOTH EYES PC-SUPPER Ergocalciferol [Vitamin D2 (1250 Mcg = 59143 Iu)] 1,250 mcg PO MO Carboxymethylcellulose Sodium [Refresh Tears] 1 drop BOTH EYES HS Olopatadine HCl [Pataday] 1 drop BOTH EYES QAM Discharge Medication List Aspirin 81 mg PO Q48H 04/24/15 [History] Multivitamin [Men's Multi-Vitamin] 0.5 each PO DAILY 04/24/15 [History] Latanoprost/Pf [Latanoprost 0.005% Eye Drop] 1 drop BOTH EYES PC-SUPPER 11/11/20 [History] Pravastatin Sodium [Pravachol] 20 mg PO W/SUPPER 11/11/20 [History] Carboxymethylcellulose Sodium [Refresh Tears] 1 drop BOTH EYES HS 06/15/22 [History] Ergocalciferol [Vitamin D2 (1250 Mcg = 28218 Iu)] 1,250 mcg PO MO 06/15/22 [History] Olopatadine HCl [Pataday] 1 drop BOTH EYES QAM 06/15/22 [History] Aspirin 81 mg PO BID #60 tab 04/04/24 [Rx] Diclofenac Sodium [Voltaren] 75 mg PO BID #60 tab 04/04/24 [Rx] Docusate [Colace] 100 mg PO BID #60 capsule 04/04/24 [Rx] HYDROcodone/APAP 5-325MG [Columbia 5-325] 1 - 2 tab PO Q6HR PRN #32 tab 04/04/24 [Rx] Omeprazole 40 mg PO DAILY #30 cap 04/04/24 [Rx] Follow up Appointment(s)/Referral(s): Brandon Jiménez MD [Medical Doctor] - 2 Weeks Activity/Diet/Wound Care/Special Instructions: 1. Weight-bear as tolerated on your operative extremity unless instructed otherwise. Use a walker or other assistive device to ambulate. 2. Leave surgical dressing in place. If your dressing becomes saturated with blood, there is drainage, or the dressing becomes loose please contact the office. 3. It is okay to shower with your surgical dressing, but do not submerge in water (no hot tubs, bath's, swimming etc.) 4. Make sure to take her blood clot prevention medication as prescribed (aspirin, Eliquis, Xarelto, and Plavix are commonly prescribed medications for blood clot prevention) 5. While taking Columbia or Percocet for pain make sure you're taking a stool softener (Colace) and drink lots of water. 6. Keep all follow-up appointments as scheduled. You will usually be seen in 1-2 weeks following surgery. 7. Please contact the office with any questions or concerns [phone] Discharge Disposition: HOME WITH HOME HEALTH SERVICES
--- NOTE | 2024-04-04 13:55 | P.CONS ---
History of Present Illness - Reason for Consult Consult date: 04/04/24 Medical management - History of Present Illness History of present illness; patient is a 79-year-old gentleman with past medical history significant for prostate cancer, charcoaled Nicolle tooth syndrome, osteoarthritis who presented to the hospital for elective left knee total arthroplasty. Patient has been following up outpatient with orthopedic surgery for bilateral knee pains. Patient has tried all conservative measures in the form of therapy and pain management but pain continues to persist. Orthopedics discussed with patient and age he was scheduled for left total knee arthroplasty. Postoperatively internal medicine team were consulted REVIEW OF SYSTEMS: CONSTITUTIONAL: No fever, no malaise, no fatigue. HEENT: No recent visual problems or hearing problems. Denied any sore throat. CARDIOVASCULAR: No chest pain, orthopnea, PND, no palpitations, no syncope. PULMONARY: No shortness of breath, no cough, no hemoptysis. GASTROINTESTINAL: No diarrhea, no nausea, no vomiting, no abdominal pain. NEUROLOGICAL: No headaches, no weakness, no numbness. HEMATOLOGICAL: Denies any bleeding or petechiae. GENITOURINARY: Denies any burning micturition, frequency, or urgency. MUSCULOSKELETAL/RHEUMATOLOGICAL: Left knee pain ENDOCRINE: Denies any polyuria or polydipsia. The rest of the 14-point review of systems is negative. PHYSICAL EXAMINATION: GENERAL: The patient is alert and oriented x3, not in any acute distress. Well developed, well nourished. HEENT: Pupils are round and equally reacting to light. EOMI. No scleral icterus. No conjunctival pallor. Normocephalic, atraumatic. No pharyngeal erythema. No thyromegaly. CARDIOVASCULAR: S1 and S2 present. No murmurs, rubs, or gallops. PULMONARY: Chest is clear to auscultation, no wheezing or crackles. ABDOMEN: Soft, nontender, nondistended, normoactive bowel sounds. No palpable organomegaly. MUSCULOSKELETAL: Left knee surgical incision seen EXTREMITIES: No cyanosis, clubbing, or pedal edema. NEUROLOGICAL: Gross neurological examination did not reveal any focal deficits. SKIN: No rashes. Assessment and plan Left knee osteoarthritis s/p left total knee arthroplasty CMT History of prostate cancer Hyperlipidemia Monitor vital signs Continue pain management per orthopedics Continue DVT prophylaxis per orthopedics Resume home meds PT and OT consulted Orthopedic following Labs and medication were reviewed.. Continue same treatment. Continue with symptomatic treatment. Resume home medication. Monitor labs and vitals. DVT and GI prophylaxis. Further recommendations as per clinical course of the patient Dictation was produced using [employer] dictation software. please excuse any grammatical, word or spelling errors. 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 USES CANE. USES BIPAP. History of Any Multi-Drug Resistant Organisms: None Reported Past Surgical History: Adenoidectomy, Appendectomy, Joint Replacement, Ortho pedic Surgery, Tonsillectomy Additional Past Surgical History / Comment(s): CINDI HIP REPLACED, WITH RIGHT REVISION. RT KNEE SCOPE. BILAT ROTATOR CUFF SX. BILAT HAND SX. LT CATARACT SX. COLONOSCOPY. HEMORRHOIDECTOMY Past Anesthesia/Blood Transfusion Reactions: No Reported Reaction Past Psychological History: No Psychological Hx Reported Smoking Status: Never smoker Past Alcohol Use History: Occasional Additional Past Alcohol Use History / Comment(s): 1-2 drinks/week. Beer Past Drug Use History: None Reported - Past Family History Sister(s) Family Medical History: Cancer Additional Family Medical History / Comment(s): skin Father Family Medical History: Cancer Additional Family Medical History / Comment(s): skin Mother Family Medical History: Cancer Medications and Allergies Home Medications Medication Instructions Recorded Confirmed Type Aspirin 81 mg PO Q48H 04/24/15 04/03/24 History Multivitamin [Men's Multi-Vitamin] 0.5 each PO DAILY 04/24/15 04/03/24 History Latanoprost/Pf [Latanoprost 0.005% 1 drop BOTH EYES PC-SUPPER 11/11/20 04/03/24 History Eye Drop] Pravastatin Sodium [Pravachol] 20 mg PO W/SUPPER 11/11/20 04/03/24 History Carboxymethylcellulose Sodium 1 drop BOTH EYES HS 06/15/22 04/03/24 History [Refresh Tears] Ergocalciferol [Vitamin D2 (1250 1,250 mcg PO MO 06/15/22 04/03/24 History Mcg = 62542 Iu)] Olopatadine HCl [Pataday] 1 drop BOTH EYES QAM 06/15/22 04/03/24 History Allergies Allergy/AdvReac Type Severity Reaction Status Date / Time No Known Allergies Allergy Verified 04/03/24 14:49 Physical Exam Vitals: Vital Signs Temp Pulse Pulse Resp BP Pulse Ox 04/04/24 06:55 97.5 F L 85 17 143/85 94 L 04/04/24 01:40 97.8 F 88 16 120/70 94 L 04/03/24 22:57 88 96 04/03/24 22:17 62 18 120/76 96 04/03/24 22:02 84 105/75 95 04/03/24 21:47 64 120/69 97 04/03/24 21:34 74 118/75 96 04/03/24 21:17 79 118/69 95 04/03/24 21:02 80 16 111/69 95 04/03/24 20:47 86 18 120/79 97 04/03/24 20:32 98.4 F 78 18 111/72 93 L 04/03/24 20:15 92 16 123/67 94 L 04/03/24 20:00 91 16 117/64 94 L 04/03/24 19:45 90 16 126/63 95 04/03/24 19:30 93 16 126/57 96 04/03/24 19:15 97.6 F 103 H 16 137/64 96 04/03/24 16:34 82 18 118/63 96 04/03/24 14:47 98.0 F 73 18 140/75 95 Intake and Output 04/03/24 04/04/24 04/04/24 22:59 06:59 14:59 Intake Total 1750 Output Total 100 500 Balance 1650 -500 Intake: IV 1750 Output: Urine 500 Straight 500 Estimated Blood Loss 100 Other: Weight 82.3 kg
[2024-04-04] MEDS ORDERED: PRAVASTATIN SODIUM 20 MG TAB PO SCH (17:30)
[2024-04-04] MEDS ORDERED: LATANOPROST 0.005% OPHTH DROPS 2.5 ML BTL BOTH EYES SCH (18:30)
[2024-04-04] MEDS ORDERED: ARTIFICIAL TEARS-HYPROMELLOSE DROPS 15 ML BTL BOTH EYES SCH (21:00)
[2024-04-05] MEDS ORDERED: MULTIVITAMINS, THERA 1 EACH TAB PO SCH (09:00)
[2024-04-05] MEDS ORDERED: KETOTIFEN 0.025% OPHTH DROPS 5 ML BTL BOTH EYES SCH (09:00)
[2024-04-08] MEDS ORDERED: ERGOCALCIFEROL 1,250 MCG (50,000 IU) CAPSULE PO SCH (09:00)
== END 2024-04-04 13:17 | disposition home health service (06) ==
LOC: OR 14:27 → 4SSUR 19:15 → OR 04-04 13:17
PROVIDERS: ATTEND Orthopaedic Surgery
DX: M17.12 Unilateral primary osteoarthritis, left knee (principal); E78.5 Hyperlipidemia, unspecified; G47.30 Sleep apnea, unspecified; G89.18 Other acute postprocedural pain; Z79.899 Other long term (current) drug therapy; Z85.46 Personal history of malignant neoplasm of prostate; Z90.49 Acquired absence of other specified parts of digestive tract
CPT/HCPCS: 0055T; 27447; 64447; 64999; 85025

== ENCOUNTER → 2024-05-02 | Outpatient (CLI) | payer MEDICARE ==
--- NOTE | 2024-05-02 15:12 | US ---
EXAMINATION TYPE: US venous doppler duplex LE LT DATE OF EXAM: 05/02/2024 2:56 PM COMPARISON: NONE CLINICAL INDICATION: Male, 79 years old with history of I80.9 PHLEBITIS AND THROMBOPHLEBITIS OF UNSPE CIFIE; left total knee April 03, pain within calf is ongoing, no h/o dvt SIDE PERFORMED: Left TECHNIQUE: The lower extremity deep venous system is examined utilizing real time linear array sonog neelam with graded compression, doppler sonography and color-flow sonography. VESSELS IMAGED: Common Femoral Vein Deep Femoral Vein Greater Saphenous Vein * Femoral Vein Popliteal Vein Small Saphenous Vein * Proximal Calf Veins (* superficial vessels) Left Leg: Negative for DVT 9.9 cm complex cyst starting at distal pop fossa and extending into calf at area of patients pain called office and gave findings IMPRESSION: 1. No evidence of DVT. 2. Complex popliteal fossa cyst measuring 9.9 cm.
== END | disposition home or self-care (01) ==
LOC: RADUSWWP 14:36
PROVIDERS: ATTEND Orthopaedic Surgery
DX: I80.9 Phlebitis and thrombophlebitis of unspecified site

== ENCOUNTER → 2025-01-21 | Outpatient (CLI) | payer MEDICARE | END | disposition home or self-care (01) | LOC: LABWHC1 09:00 | PROVIDERS: ATTEND Radiology Radiation Oncology | DX: Z08 Encounter for follow-up examination after completed treatment for malignant neoplasm (principal); Z00.6 Encounter for examination for normal comparison and control in clinical research program; C61 Malignant neoplasm of prostate; R35.1 Nocturia; Z92.3 Personal history of irradiation | CPT/HCPCS: 36415; 84153 ==

== ENCOUNTER → 2025-02-04 | Outpatient (CLI) | payer MEDICARE ==
--- NOTE | 2025-02-04 12:21 | CT ---
INDICATION: Patient age:Male; 79 years old; Reason for study: [facility] Protocol for right knee replacement, M17.11 UNILATERAL PRIMARY OSTEOARTHRITIS, RIGHT KN; [facility]. COMPARISON: None TECHNIQUE: Thin section axial CT imaging of the entire right lower extremity was performed per [facility] protocol, wi thout the administration of IV contrast. Additional axial images of the bilateral hips and ankles wit h other knee were also obtained. Reformatted images in coronal and sagittal views obtained. FINDINGS: There is no evidence of acute fracture or dislocation. Postsurgical changes from bilateral total hip arthroplasty. Additional fixation plating with cerclage wires involving the proximal right femur from prior fracture. Tricompartmental joint space narrowing with marginal osteophytosis of the right knee. Subchondral cys tic changes demonstrated. Consistent with moderate to severe osteoarthritic change. Small to moderate sized suprapatellar joint effusion. Degenerative changes of the bilateral ankle joints at the distal fibular tibial joint. Small bilatera l posterior calcaneal enthesophytes. The visualized soft tissues appear grossly unremarkable within the limits of unenhanced CT. IMPRESSION: [facility] protocol for right knee joint replacement. [facility], , 02/04/2025 12:19 PM
== END | disposition home or self-care (01) ==
LOC: RADCTMAIN 11:07
PROVIDERS: ATTEND Orthopaedic Surgery
DX: Z01.818 Encounter for other preprocedural examination (principal); M17.11 Unilateral primary osteoarthritis, right knee; Z96.651 Presence of right artificial knee joint

== ENCOUNTER → 2025-03-10 | Outpatient (CLI) | payer MEDICARE ==
[2025-03-10 14:02] LABS: INR 0.9 (<1.2); Partial Thromboplastin Time 24.7 sec (22.0-30.0); Prothrombin Time 10.2 sec (10.0-12.5)
[2025-03-10 18:46] LABS: HCT 46.3 % (39.6-50.0); HGB 14.8 g/dL (13.0-17.0); MCH 29.1 pg (27.0-32.0); MCV 91.1 FL (80.0-97.0); Mean Platelet Volume 9.9 FL (9.5-12.2); NRBC Per 100 WBC 0 X 10*3/uL (0.00-0.01); Platelet Count 244 X 10*3/uL (140-440); RBC 5.08 X 10*6/uL (4.40-5.60); RDW 14.3 % (11.5-14.5); WBC 7.33 X 10*3/uL (4.50-10.00)
[2025-03-10 19:25] LABS: ALT 20 U/L (10-49); AST 23 U/L (14-35); Alkaline Phosphatase 74 U/L (41-126); BUN/Creat Ratio 24.56 Ratio (12.00-20.00); Blood Urea Nitrogen 22.1 mg/dL (9.0-27.0); Calcium 9.3 mg/dL (8.7-10.3); Carbon Dioxide 23.7 mmol/L (21.6-31.8); Chloride 105 mmol/L (96-109); Globulin 2.1 g/dL (1.6-3.3); Glucose 93 mg/dL (70-110); Potassium 4.5 mmol/L (3.5-5.5); Sodium 140 mmol/L (135-145); Total Bilirubin 0.5 mg/dL (0.3-1.2); Total Protein 6.1 g/dL (6.2-8.2)
== END | disposition home or self-care (01) ==
LOC: LABPAT 12:22
PROVIDERS: ATTEND Orthopaedic Surgery
DX: Z01.812 Encounter for preprocedural laboratory examination (principal); Z22.322 Carrier or suspected carrier of Methicillin resistant Staphylococcus aureus; M17.11 Unilateral primary osteoarthritis, right knee; E11.9 Type 2 diabetes mellitus without complications
CPT/HCPCS: 36415; 80053; 83036; 85027; 85610; 85730; 87070

== ENCOUNTER 2025-03-12 14:01 | Day surgery (SDC) | payer MEDICARE ==
[2025-03-10 11:01] VITALS: BMI 25.4
[~2025-03-12 14:01] MED LIST changes: +LIDOCAINE 1% (10MG/ML) FOR IV START INTRADERMA PRN; +ONDANSETRON 4 MG/2 ML VIAL IVP PRN; +fentaNYL (PF) 50 MCG/ML 2 ML AMP IVP PRN
[2025-03-12] MEDS: IV FLUID CONTINUATION 1,000 ML IV ONE (14:17)
[2025-03-12] MEDS: DOCUSATE 100 MG CAP PO PRN (14:39)
[2025-03-12] MEDS: oxyCODONE ER 10 MG TAB.ER.12H PO PRN (14:39)
[2025-03-12] MEDS: ACETAMINOPHEN TAB 500 MG TAB PO PRN (14:39)
[2025-03-12] MEDS: MIDAZOLAM 2 MG/2 ML VIAL IV PRN (14:43)
[2025-03-12] MEDS: LACTATED RINGERS 1,000 ML IV SCH (14:43)
[2025-03-12] MEDS: KETOROLAC 15 MG/ML 1 ML VIAL IVP PRN (14:46)
[2025-03-12] MEDS: DEXAMETHASONE SOD PHOSPHATE 10 MG/ML 1 ML VIAL IV PRN (14:46)
[2025-03-12] MEDS: ONDANSETRON 4 MG/2 ML VIAL IVP ONE (14:46)
[2025-03-12] MEDS: FAMOTIDINE 20 MG/2 ML VIAL IVP PRN (14:46)
[2025-03-12] MEDS ORDERED: PHENYLEPHRINE 10 MG/ML VIAL ONE (14:57)
[2025-03-12] MEDS ORDERED: GLYCOPYRROLATE 0.2 MG/ML 2 ML VIAL ONE (14:57)
[2025-03-12] MEDS ORDERED: ROPIVACAINE 5 MG/ML 30 ML VIAL ONE (14:57)
[2025-03-12] MEDS ORDERED: DEXAMETHASONE SOD PHOSPHATE 4 MG/ML 1 ML VIAL ONE (14:57)
[2025-03-12] MEDS ORDERED: PROPOFOL 10 MG/ML 20 ML VIAL IV ONE (14:57)
[2025-03-12] MEDS ORDERED: LIDOCAINE 1% INJ 10MG/ML (20 ML MDV) ONE (14:57)
[2025-03-12] MEDS ORDERED: fentaNYL (PF) 50 MCG/ML 2 ML AMP ONE (14:57)
[2025-03-12] MEDS ORDERED: TRANEXAMIC 1,000 MG/100ML-NACL PREMIX BAG ONE (14:57)
[2025-03-12] MEDS ORDERED: ROCURONIUM 10 MG/ML (5 ML VIAL) IV ONE (14:57)
[2025-03-12] MEDS ORDERED: HYDROmorphone (PF) 1 MG/ML ONE (14:57)
[2025-03-12] MEDS ORDERED: SUCCINYLCHOLINE CHLORIDE 200 MG/10 ML VIAL IV ONE (14:57)
[2025-03-12] MEDS ORDERED: NEOSTIGMINE 1 MG/ML 10 ML VIAL ONE (14:57)
--- NOTE | 2025-03-12 14:57 | P.ANPRN ---
Procedure Note - Anesthesia - Nerve Block Performed Right Adductor Canal Single Time Out Performed: Yes Date of Procedure: 03/12/25 Procedure Start Time: 14:42 Procedure Stop Time: 14:47 Location of Patient: PreOp Indication: Acute Post-Operative Pain, Analgesia, Requested by Surgeon Sedation Type: Sedate with meaningful contact maintained Preparation: Sterile Prep Position: Supine Catheter: None Needle Types: Pajunk Needle Gauge: 21 Ultrasound used to visualize needle placement: Yes Ultrasound used to observe medication spread: Yes Injectate: 0.5% Ropivacaine (see comment for volume) (Ropiv 15 nl+[id number]) Blood Aspirated: No Pain Paresthesia on Injection Noted: No Resistance on Injection: Normal Image Stored and Saved: Yes Events: Uneventful and Well Tolerated
--- NOTE | 2025-03-12 14:58 | P.ANPRN ---
Procedure Note - Anesthesia - Nerve Block Performed Right [place] Single Time Out Performed: Yes Date of Procedure: 03/12/25 Procedure Start Time: 14:47 Procedure Stop Time: 14:52 Location of Patient: PreOp Indication: Acute Post-Operative Pain, Analgesia, Requested by Surgeon Sedation Type: Sedate with meaningful contact maintained Preparation: Sterile Prep Position: Left Lateral Catheter: None Needle Types: Pajunk Needle Gauge: 21 Ultrasound used to visualize needle placement: Yes Ultrasound used to observe medication spread: Yes Injectate: 2.0% Lidocaine (see comment for volume) (rrrrrrrrropiv 20ml+Decadron 4mg) Blood Aspirated: No Pain Paresthesia on Injection Noted: No Resistance on Injection: Normal Image Stored and Saved: Yes Events: Uneventful and Well Tolerated
[2025-03-12] MEDS: ceFAZolin 2 GM in DEXTROSE 5% IN WATER 50 ML IVPB PRN (15:03)
[2025-03-12] MEDS: ROPIVACAINE/EPI/CLONIDINE/KET 50 ML SYRINGE MISCELLANE PRN (15:37)
[2025-03-12] MEDS: LACTATED RINGERS 1,000 ML IV ONE (15:37)
[2025-03-12] MEDS ORDERED: ONDANSETRON 4 MG/2 ML VIAL IVP PRN (16:51)
[2025-03-12] MEDS ORDERED: HYDROcodone/APAP 10-325MG 1 EACH TAB PO PRN (16:51)
[2025-03-12] MEDS ORDERED: MAGNESIUM HYDROXIDE 2,400 MG/30 ML CUP PO PRN (16:51)
[2025-03-12] MEDS ORDERED: hydrOXYzine pamoate 25 MG CAP PO PRN (16:51)
[2025-03-12] MEDS ORDERED: TEMAZEPAM 15 MG CAP PO PRN ×2 (16:51→22:00)
[2025-03-12] MEDS ORDERED: diazePAM 5 MG TAB PO PRN ×2 (16:51)
[2025-03-12] MEDS ORDERED: HYDROmorphone 0.5 MG/0.5 ML SYRINGE IVP PRN ×3 (16:51)
[2025-03-12] MEDS ORDERED: NALOXONE 0.4 MG/ML 1 ML VIAL IV PRN (16:51)
--- NOTE | 2025-03-12 16:51 | P.OP ---
Date of Procedure: 03/12/25 Preoperative Diagnosis: Severe right knee arthritis Postoperative Diagnosis: Same Procedure(s) Performed: 1. Right total knee arthroplasty 2. Computer assisted musculoskeletal navigation using CT/MRI images Implants: 1. Aura Triathlon CR Femur Size #5 2. [place] Triathlon Dawson Tibial Base Size #5 3. Aura Triathlon CS poly Size #10 4. [place] Triathlon all poly patella, Size #32 Anesthesia: CALLIA, regional Surgeon: Brandon Jiménez Coil Finisher #1: Ok Marquez Estimated Blood Loss (ml): 100 IV fluids (ml): 800 Pathology: none sent Condition: stable Disposition: PACU Indications for Procedure: I met with the patient preoperatively in the office setting and discussed treatment of their symptomatic knee arthritis. They failed a long course of nonsurgical treatment and elected to proceed with an elective total knee replacement. I discussed the potential risks and complications at length and gave them ample time to ask questions. Risks discussed included: risks from anesthesia, superficial site surgical infection, acute and/or chronic periprosthetic joint infection, delayed wound healing, drainage, wound necrosis, instability, stiffness, stiffness requiring manipulation and/or revision surgery, damage to local blood vessels or nerves, aseptic loosening of the implants, extensor mechanism issues including disruption, patellar maltracking, avascular necrosis etc., continued or worsened knee pain, generalized dissatisfaction with surgical outcome, need for revision surgery, an inability to regain preinjury level of function, DVT, PE, other medical complications, and possibly loss of life or limb. The patient voiced their understanding that while these are the most common complications other less common complications are possible. They provided both their verbal and written consent to go forward with surgery. Description of Procedure: The patient was identified in preoperative holding and the correct operative extremity was verified and marked with a marker. I reviewed the consent form with the patient at length. All of their questions were answered. The patient was given a block by anesthesia. They were then brought back to the operating room. They were transferred onto the operating room table where a general anesthetic, preoperative antibiotics, and tranexamic acid were administered by anesthesia. A tourniquet was applied to the proximal aspect of the operative extremity. The contralateral extremity was padded under the heel and secured to the operating room table with a nonsterile blue towel and tape. The ipsilateral arm was carefully draped across the patient's chest and secured with a pillow and foam. A post was applied over the lateral aspect of the ipsilateral thigh and a bolster was placed under the ipsilateral foot. I verified that the operative extremity was stable and the knee was flexed to 90. The operative extremity was then placed in a leg jo, nonsterile drapes were applied, and the extremity was prepped and draped sterilely in the standard sterile fashion. Prior to starting surgery timeout was performed identifying the correct patient, operative extremity, and procedure. The leg was then elevated, exsanguinated with an Esmarch bandage, and the tourniquet was inflated. An anterior midline incision was made sharply with a scalpel. Once I had dissected deep to the superficial fascial layer medial and lateral flaps were elevated. A medial parapatellar arthrotomy was created. Upon opening the knee joint there were diffuse arthritic changes in all 3 compartments. The anterior horn of the medial meniscus were sharply released and a medial release was performed around the posterior medial corner of the knee to facilitate retractor placement. The fat pad was excised with electrocautery. Remnants of the ACL and PCL were then excised from the notch. 4 mm pins were then placed within the incision in the medial distal femur and proximal tibia. Arrays were applied to the pins and I verified they were completely tightened. The knee was then registered with the [employer] robot and manipulations in implant position were made to balance the knee and opitmize implant position. Using the [employer] robotic saw all cuts were made in accordance with our plan. After all bony fragments had been removed the cuts were verified with the planar probe. The tibia was then subluxed forward and sized. The knee was brought into flexion and a lamina medical receptionist was placed to allow removal of the meniscal remnants both medially and laterally as well as posterior osteophytes. Local anesthetic was then infiltrated around the joint capsule. Trial implants were then placed within the knee. Range of motion and collateral ligament tension was then evaluated. Adjustments in implant size and position were then made accordingly. Once the knee was felt to be appropriately balanced the Jac pins were removed. The patella was then cut, sized, and punched. A trial patellar button was then placed. With the trial components in place, the patella tracked midline. The femur was then drilled and the trial component removed. The trial tibial component was then appropriately rotated, pinned, and prepared for the keel. All trial components were then removed from the knee. The knee was thoroughly irrigated with pulsatile lavage. Cement was prepared via vacuum mixing in a bowl on the back table. Once the cement had reached appropriate consistency, I hand pressurized cement into the tibia and gently impacted the tibial implant into place. Cement was carefully removed from around the tibial tray and the poly liner was tapped into placed, engaging the locking mechanism. The femur was then exposed and cement was hand pressurized into the cut surfaces. The femoral implant was gently tapped into place and cement was carefully removed. A wet lap sponge was used to wipe down the bearing surface of the femur and the knee was extended to further pressurize cement. With the knee extended, cement was pressurized into the cut surface of the patella and the patella button was placed and compressed with a clamp. All extruded cement was removed including from the pin sites. The knee was held in extension until the cement had fully hardened. Once the cement had hardened the knee was evaluated one final time with the final polyethylene liner in place. The knee had full extension and flexion and felt stable to varus and valgus stress throughout the arc of motion. The tourniquet was released and with the tourniquet down the patella tracked midline. All bleeders were controlled with electrocautery. The knee was then soaked for 3 minutes with a dilute Betadine soak. The knee was thoroughly irrigated using 3 L of sterile saline and pulsatile lavage. The extensor me chanism was then reapproximated using pop off Vicryl sutures followed by a running barbed suture. The knee was then closed in layers with a 0 strata fix for the deep fascial layer, 2-0 strata fix for the superficial subcutaneous layer and Monocryl and Steri-Strips for the skin. A sterile dressing was applied. I verified that all instrument, sponge, and sharp counts were correct. The patient was then transferred off the operating room table, extubated, and brought to recovery having tolerated the procedure well. Ok Marquez PA-C was required as a skilled assistant real estate manager due to the complexity of surgery for patient positioning, draping, exposure, retraction, closure of wound and application of dressing. PLAN: The patient can weight-bear as tolerated on the operative extremity. DVT prophylaxis with aspirin 81 mg twice a day based on preoperative risk stratification. Follow-up in the office in 2 weeks for wound check and x-rays of the knee including an AP and lateral.
--- NOTE | 2025-03-12 17:53 | XR ---
EXAMINATION TYPE: XR knee limited RT DATE OF EXAM: 03/12/2025 5:39 PM COMPARISON: 02/04/2025 CLINICAL INDICATION: Male, 80 years old with history of Evaluation for Postop abnormality and alignme nt; PHH, pain TECHNIQUE: XR knee limited RT 2 views submitted. FINDINGS: Status post total knee arthroplasty changes with hardware in appropriate alignment and in tact. No evidence of fracture. Subcutaneous lucencies and lucencies within the joint consistent with surgical changes. IMPRESSION: Status post total knee arthroplasty changes with hardware intact and appropriate alignment. No fractu res identified. [facility], , 03/12/2025 5:50 PM
[2025-03-12] MEDS: SODIUM CHLORIDE 0.9% 1,000 ML IV SCH (20:38)
[2025-03-12] MEDS: DEXAMETHASONE SOD PHOSPHATE 4 MG/ML 1 ML VIAL IV ONE (20:38)
[2025-03-12] MEDS: HYDROcodone/APAP 5-325MG 1 EACH TAB PO PRN (20:41)
[2025-03-12] MEDS: SENNOSIDES-DOCUSATE SODIUM 1 EACH TAB PO SCH (20:41)
[2025-03-12] MEDS: ASPIRIN 81 MG PO SCH (20:41)
[2025-03-12] MEDS: ceFAZolin 2 GM in DEXTROSE 5% IN WATER 50 ML IVPB SCH (22:45)
[2025-03-13 01:24] VITALS: TEMP 97.7
[2025-03-13 07:59] VITALS: BP 123/89; PULSE 89; RESP 16
--- NOTE | 2025-03-13 08:03 | P.DS ---
Providers Attending physician: Brandon Jiménez Consults: 03/12/25 16:51 Consult Physician Routine Consulting Provider: Lucinda Hyman Consult Reason/Comments: post op medical management Do you want consulting provider notified?: Yes Primary care physician: Lucinda Boogie [facility] Course: This is a 80-year-old patient, with past medical history of severe right knee osteoarthritis, who failed nonsurgical conservative management. On 03/12/2025 the patient presented to the [facility] pre-op department for scheduled jacobo total knee arthroplasty with Dr. Jiménez. The patient tolerated the procedure well. The patient was transferred to the orthopedic floor. The patient had no acute events over night. The patient's pain has been well-controlled. Patient was examined at bedside. Patient is resting comfortably in bed. No apparent distress. They are awake, alert and able to answer questions. Inspection: The surgical dressing is intact, there is a small area of distal strikethrough. The skin surrounding the dressing is free of erythema. There is mild swelling in the operative thigh. Palpation: The operative calf is soft to compression. No calf tenderness. Neurovascular: Operative femoral nerve function is intact. The patient is able to actively plantarflex and dorsiflex their operative ankle and toes. Operative extremity sensation is intact to light touch throughout. Their operative foot appears well perfused, palpable dorsalis pedis pulse, and capillary refill under 2 seconds. Patient will work with physical therapy. If patient passes physical therapy, pain is controlled, and is cleared by internal medicine patient can discharge home today. Patient can resume home pain medication at home. DVT prophylaxis with 81 mg aspirin twice daily. Patient has at home. Please see med rec for a list of accurate medications. Assessment: Postop day 1 status post right total knee arthroplasty Right knee osteoarthritis Right knee pain Plan - Discharge Summary Discharge Rx Participant: Yes New Discharge Prescriptions: No Action Multivitamin [Men's Multi-Vitamin] 1 each PO DAILY Pravastatin Sodium [Pravachol] 20 mg PO W/SUPPER Latanoprost/Pf [Latanoprost 0.005% Eye Drop] 1 drop BOTH EYES PC-SUPPER Ergocalciferol [Vitamin D2 (1250 Mcg = 72100 Iu)] 1,250 mcg PO MO Tamsulosin HCl [Flomax] 0.4 mg PO HS Pantoprazole [Protonix] 40 mg PO DAILY Aspirin 81 mg PO DAILY Discharge Medication List Multivitamin [Men's Multi-Vitamin] 1 each PO DAILY 04/24/15 [History] Latanoprost/Pf [Latanoprost 0.005% Eye Drop] 1 drop BOTH EYES PC-SUPPER 11/11/20 [History] Pravastatin Sodium [Pravachol] 20 mg PO W/SUPPER 11/11/20 [History] Ergocalciferol [Vitamin D2 (1250 Mcg = 46947 Iu)] 1,250 mcg PO MO 06/15/22 [History] Aspirin 81 mg PO DAILY 03/10/25 [History] Pantoprazole [Protonix] 40 mg PO DAILY 03/10/25 [History] Tamsulosin HCl [Flomax] 0.4 mg PO HS 03/10/25 [History] Follow up Appointment(s)/Referral(s): Brandon Jiménez MD [Medical Doctor] - 2 Weeks Activity/Diet/Wound Care/Special Instructions: 1. Weight-bear as tolerated on your operative extremity unless instructed otherwise. Use a walker or other assistive device to ambulate. 2. Leave surgical dressing in place. If your dressing becomes saturated with blood, there is drainage, or the dressing becomes loose please contact the office. 3. It is okay to shower with your surgical dressing, but do not submerge in water (no hot tubs, bath's, swimming etc.) 4. Take your blood clot prevention medication as prescribed (aspirin, Eliquis, Xarelto, and Plavix are commonly prescribed medications for blood clot prevention) 5. While taking [place] or Percocet for pain take a stool softener (Ex: Colace) and drink lots of water. 6. Keep all follow-up appointments as scheduled. You will usually be seen in 1-2 weeks following surgery. 7. Please contact the office with any questions or concerns [phone] Patient has pain medicine at home and can resume pain medicine at home. Discharge Disposition: HOME WITH HOME HEALTH SERVICES
[2025-03-13 08:16] LABS: Basophils # (A) 0.02 X 10*3/uL (0.00-0.10); Basophils % (A) 0.1 %; Eosinophils # (A) 0 X 10*3/uL (0.04-0.35); Eosinophils % (A) 0 %; HCT 41.4 % (39.6-50.0); HGB 13.5 g/dL (13.0-17.0); Lymphocytes # (A) 0.71 X 10*3/uL (0.90-5.00); Lymphocytes % (A) 5.2 %; MCH 29.8 pg (27.0-32.0); MCHC 32.6 g/dL (32.0-37.0); MCV 91.4 FL (80.0-97.0); Mean Platelet Volume 10.1 FL (9.5-12.2); Monocytes # (A) 0.58 X 10*3/uL (0.20-1.00); Monocytes % (A) 4.3 %; NRBC Per 100 WBC 0 X 10*3/uL (0.00-0.01); Neutrophils # (A) 12.24 X 10*3/uL (1.80-7.70); Neutrophils % (A) 89.9 %; Platelet Count 236 X 10*3/uL (140-440); RBC 4.53 X 10*6/uL (4.40-5.60); RDW 14.2 % (11.5-14.5); WBC 13.62 X 10*3/uL (4.50-10.00)
--- NOTE | 2025-03-13 09:11 | P.CONS ---
History of Present Illness - Reason for Consult Consult date: 03/13/25 - History of Present Illness Yash Arriaza, is an 80-year-old male who was admitted to [facility] by Dr. Jiménez and underwent right total knee arthroplasty. Patient is well-known to our practice, medical consultation was requested for management while hospital. His past medical history is significant for history of Juhwkfi-Jshes-Qcdao syndrome, history of prostate cancer, history of osteoarthritis, with history of left total knee arthroplasty 1 year ago. History of gastroesophageal reflux disease, history of hyperlipidemia, history of vitamin D deficiency. On review of systems patient is alert and oriented x 3 in no apparent distress there is no fever or chills no headache or dizziness no chest pain no shortness of breath no cough no nausea or vomiting no abdominal pain no diarrhea no blood in the stools no burning with urination no frequency or urgency and no hematuria. Past Medical History Past Medical History: Hyperlipidemia, Sleep Apnea/CPAP/BIPAP Additional Past Medical History / Comment(s): HAS [id number] DISEASE History of Any Multi-Drug Resistant Organisms: None Reported Past Surgical History: Adenoidectomy, Appendectomy, Joint Replacement, Orthopedic Surgery, Tonsillectomy Additional Past Surgical History / Comment(s): RT NAHUM. RT KNEE SCOPE. BILAT ROTATOR CUFF SX. BILAT HAND SX. LT CATARACT SX. COLONOSCOPY. HEMORRHO IDECTOMY Past Anesthesia/Blood Transfusion Reactions: No Reported Reaction Past Psychological History: No Psychological Hx Reported Smoking Status: Never smoker Past Alcohol Use History: Occasional Additional Past Alcohol Use History / Comment(s): 1-2 drinks/week. Beer Past Drug Use History: None Reported - Past Family History Sister(s) Family Medical History: Cancer Additional Family Medical History / Comment(s): skin Father Family Medical History: Cancer Additional Family Medical History / Comment(s): skin Mother Family Medical History: Cancer Medications and Allergies Home Medications Medication Instructions Recorded Confirmed Type Multivitamin [Men's Multi-Vitamin] 1 each PO DAILY 04/24/15 03/12/25 History Latanoprost/Pf [Latanoprost 0.005% 1 drop BOTH EYES PC-SUPPER 11/11/20 03/12/25 History Eye Drop] Pravastatin Sodium [Pravachol] 20 mg PO W/SUPPER 11/11/20 03/12/25 History Ergocalciferol [Vitamin D2 (1250 1,250 mcg PO MO 06/15/22 03/12/25 History Mcg = 87953 Iu)] Aspirin 81 mg PO DAILY 03/10/25 03/12/25 History Pantoprazole [Protonix] 40 mg PO DAILY 03/10/25 03/12/25 History Tamsulosin HCl [Flomax] 0.4 mg PO HS 03/10/25 03/12/25 History Allergies Allergy/AdvReac Type Severity Reaction Status Date / Time No Known Allergies Allergy Verified 03/12/25 14:18 Physical Exam Vitals: Vital Signs Temp Pulse Pulse Resp BP Pulse Ox FiO2 03/13/25 07:58 97.7 F 89 16 123/89 94 L 03/13/25 00:18 97.7 F 79 112/62 95 03/12/25 20:40 100 148/89 94 L 03/12/25 20:25 83 146/69 91 L 03/12/25 20:10 91 145/80 92 L 03/12/25 19:55 89 137/78 90 L 03/12/25 19:40 90 136/79 93 L 03/12/25 19:25 88 161/83 93 L 03/12/25 19:10 101 H 193/122 93 L 03/12/25 18:40 80 148/76 93 L 03/12/25 18:10 85 12 113/68 92 L 03/12/25 17:55 74 12 110/58 96 03/12/25 17:40 74 116/66 98 03/12/25 17:25 79 10 L 117/68 97 03/12/25 17:11 97.1 F L 91 10 L 129/68 97 03/12/25 14:57 77 17 114/85 97 32 03/12/25 14:52 80 17 132/77 98 31 03/12/25 14:47 76 17 121/71 97 34 03/12/25 14:16 98.1 F 81 18 127/82 95 Intake and Output 03/12/25 03/13/25 03/13/25 22:59 06:59 14:59 Intake Total 950 240 Output Total 100 300 Balance 850 -60 Intake: IV 950 Oral 240 Output: Urine 300 Estimated Blood Loss 100 Other: Voiding Method Urinal # Voids 1 Weight 85.1 kg In general patient is alert and oriented x 3 in no distress HEENT head normocephalic and atraumatic Neck is supple no JVD no goiter no lymphadenopathy no carotid bruit Chest examination is clear to auscultation no crackles no wheezing Cardiac exam reveals regular heart sounds S1 and S2 no gallops no murmurs Abdomen is soft nontender no organomegaly with normal bowel sounds Extremity exam reveals no edema no cyanosis or clubbing, there is muscle wasting in the lower extremities with braces on both ankles Neurological examination reveals no gross focal deficits Results CBC & Chem 7: 03/13/25 03:07 Labs: Abnormal Lab Results - Last 24 Hours (Table) 03/13/25 Range/Units 03:07 WBC 13.62 H (4.50-10.00) X 10*3/uL Immature Gran # 0.07 H (0.00-0.04) X 10*3/uL Neutrophils # 12.24 H (1.80-7.70) X 10*3/uL Lymphocytes # 0.71 L (0.90-5.00) X 10*3/uL Eosinophils # 0 L (0.04-0.35) X 10*3/uL Assessment and Plan Plan: Osteoarthritis, admitted for right total knee arthroplasty Underlying history of Ofeqeax-Getqv-Xhxdf syndrome Underlying history of hyperlipidemia Previous history of prostate cancer Underlying history of gastroesophageal reflux disease Underlying history of vitamin D deficiency At this time patient was seen and examined. Home medications reviewed and reordered. DVT prophylaxis and pain management as per orthopedic protocol Follow during this admission for medical management
[2025-03-13] MEDS: PANTOPRAZOLE 40 MG TABLET PO SCH (10:06)
[2025-03-13] MEDS: MULTIVITAMINS, THERA 1 EACH TAB PO SCH (10:06)
[2025-03-13] MEDS: ASPIRIN 81 MG PO SCH (10:51)
[2025-03-13] MEDS ORDERED: PRAVASTATIN SODIUM 20 MG TAB PO SCH (17:30)
[2025-03-13] MEDS ORDERED: LATANOPROST 0.005% OPHTH DROPS 2.5 ML BTL BOTH EYES SCH (18:30)
[2025-03-13] MEDS ORDERED: TAMSULOSIN 0.4 MG CAP.ER.24H PO SCH (21:00)
[2025-03-17] MEDS ORDERED: ERGOCALCIFEROL 1,250 MCG (50,000 IU) CAPSULE PO SCH (09:00)
== END 2025-03-13 10:36 | disposition home health service (06) ==
LOC: OR 14:01 → 4SSUR 17:05 → OR 03-13 10:36
PROVIDERS: ATTEND Orthopaedic Surgery
DX: M17.11 Unilateral primary osteoarthritis, right knee (principal); E78.5 Hyperlipidemia, unspecified; G89.18 Other acute postprocedural pain; K21.9 Gastro-esophageal reflux disease without esophagitis; G47.30 Sleep apnea, unspecified; F10.90 Alcohol use, unspecified, uncomplicated; Z79.82 Long term (current) use of aspirin; Z85.46 Personal history of malignant neoplasm of prostate; Z90.49 Acquired absence of other specified parts of digestive tract; Z99.89 Dependence on other enabling machines and devices; Z79.899 Other long term (current) drug therapy
CPT/HCPCS: 0055T; 27447; 64447; 64473; 85025